=== PATIENT | female | born 1935 | race Caucasian/White ===

== ENCOUNTER → 2017-01-21 | Outpatient (CLI) | payer MEDICARE, BC ==
--- NOTE | 2017-01-22 11:16 | ECHOF ---
Referral Reason:Sub aortic stenosis Q24.4 MEASUREMENTS -------- HEIGHT: 160.0 cm WEIGHT: 60.8 kg BP: IVSd: 1.0 cm (0.6 - 1.1) LVIDd: 4.1 cm (3.9 - 5.3) LVPWd: 0.8 cm (0.6 - 1.1) IVSs: 1.7 cm LVIDs: 2.7 cm LVPWs: 1.4 cm LAESV Index (A-L): 47.07 ml/m Ao Diam: 2.6 cm (2.0 - 3.7) AV Cusp: 1.8 cm (1.5 - 2.6) LA Diam: 3.3 cm (2.7 - 3.8) MV EXCURSION: 12.755 mm (> 18.000) MV EF SLOPE: 85 mm/s (70 - 150) EPSS: 0.3 cm MV E Roe: 1.10 m/s MV DecT: 162 ms MV A Roe: 0.35 m/s MV E/A Ratio: 3.17 AR PHT: 341 ms RAP: 15.00 mmHg RVSP: 59.17 mmHg FINDINGS -------- Sinus rhythm. This was a technically good study. Left ventricular wall thickness is normal. Overall left ventricular systolic function is normal with, an EF between 55 - 60 %. Sigmoid Septum The right ventricle is normal in size and function. LA is severely dilated >40 ml/m2 RA appears enlarged. Aortic valve is trileaflet and is mildly thickened. There is mild aortic regurgitation. The mitral valve leaflets are mildly thickened. Moderate mitral regurgitation is present. Severe tricuspid regurgitation present. There is mild to moderate pulmonary hypertension. The right ventricular systolic pressure, as measured by Doppler, is 59.17mmHg. Trace/mild (physiologic) pulmonic regurgitation. The aortic root size is normal. The pericardium is normal. CONCLUSIONS -------- 1. Sinus rhythm. 2. There is mild aortic regurgitation. 3. The mitral valve leaflets are mildly thickened. 4. Moderate mitral regurgitation is present. 5. Severe tricuspid regurgitation present. 6. There is mild to moderate pulmonary hypertension. 7. The right ventricular systolic pressure, as measured by Doppler, is 59.17mmHg. 8. Trace/mild (physiologic) pulmonic regurgitation. 9. The aortic root size is normal. 10. The pericardium is normal. 11. This was a technically good study. 12. Left ventricular wall thickness is normal. 13. Overall left ventricular systolic function is normal with, an EF between 55 - 60 %. 14. Sigmoid Septum 15. The right ventricle is normal in size and function. 16. LA is severely dilated >40 ml/m2 17. RA appears enlarged. 18. Aortic valve is trileaflet and is mildly thickened. CONTROLLED AREA CHECKER: Stephie Lam RDCS
== END | disposition home or self-care (01) ==
LOC: RADECHMAIN 14:51
PROVIDERS: ATTEND Family Medicine
DX: Q23.1 Congenital insufficiency of aortic valve (principal); Q23.3 Congenital mitral insufficiency; Q22.8 Other congenital malformations of tricuspid valve; I27.2 Other secondary pulmonary hypertension
CPT/HCPCS: 93306

== ENCOUNTER 2017-02-13 06:03 | Day surgery (SDC) | payer MEDICARE, BC ==
[2017-02-08 14:42] VITALS: BMI 23.5
[2017-02-13] MEDS ORDERED: SODIUM CHLORIDE 0.9% 500 ML IV ONE (06:16)
[2017-02-13 06:26] VITALS: RESP 16; TEMP 98
[2017-02-13] MEDS ORDERED: MIDAZOLAM 2 MG/2 ML VIAL ONE (06:48)
[2017-02-13] MEDS ORDERED: fentaNYL (PF) 50 MCG/ML 2 ML AMP ONE (06:48)
[2017-02-13] MEDS ORDERED: BENZOCAINE SPRAY 100 APPLIC/CAN MUCOUS MEM ONE ×2 (06:58→07:02)
[2017-02-13] MEDS ORDERED: fentaNYL (PF) 50 MCG/ML 2 ML AMP IV ONE (07:03)
[2017-02-13] MEDS ORDERED: MIDAZOLAM 2 MG/2 ML VIAL IVP ONE (07:03)
[2017-02-13] MEDS ORDERED: SODIUM CHLORIDE 0.9% 1,000 ML IV SCH (07:30)
[2017-02-13 07:58] VITALS: BP 134/67
[2017-02-13 08:08] VITALS: PULSE 72
--- NOTE | 2017-02-13 08:08 | ECHOT ---
DATE OF SERVICE: INDICATION: Evaluation of mitral and tricuspid valve. PROCEDURE: After explaining the procedure to the patient as well as risks and complications, her blood pressure, heart rate, O2 saturation was monitored. The throat was sprayed with Cetacaine. She received 50 mcg intravenous fentanyl and 2 mg of intravenous Versed. After obtaining conscious moderate sedated state, the probe was introduced in the esophagus without difficulty. Images were obtained. Following that, the probe was removed. There was no immediate complication. FINDINGS: There is mild biatrial enlargement. The left ventricle size and systolic function were normal. There was no evidence of anterior mitral valve abnormal motion. The aortic valve, mitral valve, tricuspid valve and pulmonic valve are normal. Descending thoracic aortic appears to be normal. Contrast bubble study revealed no evidence of shunting across the interatrial speed with Valsalva maneuver. No pericardial effusion was noted. Doppler pulse wave and color Doppler obtained and revealed mild to moderate mitral with moderate tricuspid regurgitation. Estimated right ventricular systolic pressure was 44 mmHg consistent with mild pulmonary hypertension. Trace to mild aortic and trace pulmonic regurgitation were noted. There was no shunting by color Doppler study. CONCLUSION: 1. Biatrial enlargement. 2. Normal left ventricular size and systolic function. 3. Mild to moderate mitral with moderate tricuspid regurgitation and mild pulmonary hypertension. 4. Trace to mild aortic regurgitation and a trace pulmonic regurgitation. 5. There was no evidence of increased velocity in the outflow tract. 6. No pericardial effusion was noted.
[2017-02-13] MEDS ORDERED: NON-FORMULARY DRUG (Calcium Carbonate [Calcium] 600 MG) PO SCH (09:00)
[2017-02-13] MEDS ORDERED: LEVOTHYROXINE 137 MCG TAB PO SCH (09:00)
[2017-02-13] MEDS ORDERED: MULTIVITAMINS, THERA 1 EACH TAB PO SCH (09:00)
[2017-02-13] MEDS ORDERED: ASPIRIN 81 MG CHEW PO SCH (09:00)
[2017-02-13] MEDS ORDERED: NON-FORMULARY DRUG (Omega-3 Fatty Acids/Fish Oil [Fish Oil 1,000 Mg Softgel] 1 EACH) PO SCH (09:00)
[2017-02-13] MEDS ORDERED: CHOLECALCIFEROL 1,000 UNIT TAB PO SCH (09:00)
[2017-02-13] MEDS ORDERED: LISINOPRIL 10 MG TAB PO SCH (09:00)
== END 2017-02-13 08:44 | disposition home or self-care (01) ==
LOC: CATHCVL 06:03
PROVIDERS: ATTEND Internal Medicine Interventional Cardiology
DX: I08.3 Combined rheumatic disorders of mitral, aortic and tricuspid valves (principal); I37.1 Nonrheumatic pulmonary valve insufficiency; I27.2 Other secondary pulmonary hypertension; I10 Essential (primary) hypertension; I42.1 Obstructive hypertrophic cardiomyopathy; Z79.82 Long term (current) use of aspirin; Z79.899 Other long term (current) drug therapy
CPT/HCPCS: 99152; 93312; 93320; 93325; J2250; J3010

== ENCOUNTER 2020-03-10 10:01 | Inpatient (IN) | payer MEDICARE, BC ==
--- NOTE | 2020-03-10 10:21 | ED ---
Arrhythmia/Palpitations HPI <Rodney Arenas - Last Filed: 03/10/20 11:55> - General Source: patient, RN notes reviewed, old records reviewed Mode of arrival: ambulatory Limitations: no limitations <Gladys Mallory - Last Filed: 03/10/20 12:30> - General Chief Complaint: Arrhythmia/Palpitations Stated Complaint: Abnormal EKG Time Seen by Provider: 03/10/20 10:12 - History of Present Illness Initial Comments: Patient is a pleasant 84-year-old female who presents the emergency department today for complaint of abnormal EKG. Patient reportedly was going to an urgent care for poison sumac rash over her legs. She received an IM steroid shot today and was going to have labs checked including patient's INR level. When she went to have her labs checked at the urgent care she is noted to have a high he art rate of 120. She does have a known history of A. fib and is maintained on Coumadin. Patient reports that she's had elevated heart rate off and on for the past year. She states that she sees a microarray operations vice president in [place]. Patient spends 6 months of the year in [place] and 6 months of the year locally. Patient reports that she's had no previous cardiac catheterizations. She is maintained on metoprolol lisinopril and is compliant with medications. She denies any fevers or chills. She denies any nausea or vomiting or abdominal pain. She denies chest pain or shortness of breath currently. Past medical history includes breast cancer with bilateral mastectomy. (Gladys Mallory) - Related Data Home Medications Medication Instructions Recorded Confirmed Lisinopril [Zestril] 10 mg PO DAILY 02/08/17 03/10/20 Levothyroxine Sodium [Synthroid] 150 mcg PO DAILY 03/10/20 03/10/20 Metoprolol Tartrate 25 mg PO BID 03/10/20 03/10/20 Warfarin [Coumadin] 2.5 mg PO SUMOWETHFR 03/10/20 03/10/20 Warfarin [Coumadin] 5 mg PO TUSA 03/10/20 03/10/20 traZODone HCL 50 mg PO HS 03/10/20 03/10/20 Allergies Allergy/AdvReac Type Severity Reaction Status Date / Time No Known Allergies Allergy Verified 06/18/20 11:41 Review of Systems ROS Other: All systems not noted in ROS Statement are negative. <ArenasRodney - Last Filed: 03/10/20 11:55> ROS Other: All systems not noted in ROS Statement are negative. <Gladys Mallory - Last Filed: 03/10/20 12:30> ROS Statement: Those systems with pertinent positive or pertinent negative responses have been documented in the HPI. Past Medical History Past Medical History: Atrial Fibrillation, Cancer Additional Past Medical History / Comment(s): Leaky valve, breast ca-rad History of Any Multi-Drug Resistant Organisms: None Reported Additional Past Surgical History / Comment(s): veins stripping, bilateral breast mastectomy, total right knee Past Anesthesia/Blood Transfusion Reactions: No Reported Reaction Past Psychological History: No Psychological Hx Reported Smoking Status: Never smoker Past Alcohol Use History: Occasional Past Drug Use History: None Reported - Past Family History Mother Family Medical History: No Reported History <Gladys Mallory - Last Filed: 03/10/20 12:30> General Exam Limitations: no limitations General appearance: alert, in no apparent distress Head exam: Present: atraumatic, normocephalic, normal inspection Eye exam: Present: normal appearance, PERRL, EOMI. Absent: scleral icterus, conjunctival injection, periorbital swelling ENT exam: Present: normal exam, mucous membranes moist Neck exam: Present: normal inspection. Absent: tenderness, meningismus, lymphadenopathy Respiratory exam: Present: normal lung sounds bilaterally, other (Scars from bilateral mastectomy.). Absent: respiratory distress, wheezes, rales, rhonchi, stridor Cardiovascular Exam: Present: normal rhythm, tachycardia (Patient is tachycardic at 120 bpm on exam.), normal heart sounds. Absent: regular rate, systolic murmur, diastolic murmur, rubs, gallop, clicks GI/Abdominal exam: Present: soft, normal bowel sounds. Absent: distended, tenderness, guarding, rebound, rigid Psychiatric exam: Present: normal affect, normal mood Skin exam: Present: warm, dry, intact, normal color. Absent: rash <Gladys Mallory - Last Filed: 03/10/20 12:30> - General Exam Comments Initial Comments: Alert and oriented 84-year-old female. Pleasant. No significant distress. (Gladys Mallory) Course <Gladys Mallory - Last Filed: 03/10/20 12:30> Vital Signs 03/10/20 03/10/20 03/10/20 10:02 11:05 11:09 Temperature 97.7 F Pulse Rate 121 H 101 H 76 Respiratory 18 18 16 Rate Blood Pressure 154/116 133/97 121/88 O2 Sat by Pulse 99 98 99 Oximetry 03/10/20 03/10/20 03/10/20 11:33 11:43 11:58 Temperature Pulse Rate 85 82 97 Respiratory 16 16 16 Rate Blood Pressure 152/98 137/80 144/101 O2 Sat by Pulse 100 99 99 Oximetry 03/10/20 12:24 Temperature Pulse Rate 96 Respiratory 16 Rate Blood Pressure 141/94 O2 Sat by Pulse 97 Oximetry - Reevaluation(s) Reevaluation #1: 03/10/20 11:37 Patient is reevaluated after receiving the 5 mg bolus of Cardizem her heart rate is now 86. Denies any symptoms. (Gladys Mallory) Reevaluation #2: 03/10/20 11:48 Reevaluated the Patient at this time and patient's heart rate did go to 125. She was offered a Cardizem drip for 10 minutes and heart rate continues to fluctuate between 125 and 70s. (Gladys Mallory) Medical Decision Making - Lab Data Result diagrams: 03/10/20 10:26 03/10/20 10:26 <Rodney Arenas - Last Filed: 03/10/20 11:55> - Lab Data Result diagrams: 03/10/20 10:26 03/10/20 10:26 - Radiology Data Radiology results: report reviewed <Gladys Mallory - Last Filed: 03/10/20 12:30> - Medical Decision Making Patient reevaluated and reexamined by myself, Dr. Arenas. Patient resting comfortably in bed. Heart rate 121. Cardizem drip restarted. I do agree with PAs findings. This includes diagnostic interpretation and treatment plan. Dr. crawford has been paged for admission covering for Dr. Galeano, who admits for Dr. Hawkins. Case was discussed with Dr. Caraballo, who will admit. (Rodney Arenas) Patient is a pleasant 84-year-old female presents emergency today with concern for high heart rate. She does have history of A. fib maintained on Coumadin. Patient started on a 5 mg bolus of Cardizem heart rate went from [birth year]14/1983. This was then taken off. The patient's heart rate returned to 1 21 bpm. Labs are otherwise unremarkable. Patient's case was discussed with Dr. Arenas and agreed for refractory tachycardia and A. fib with RVR despite the Cardizem initial dose patiently admitted. Maintain at 5 mg an hour Cardizem drip. With consult to cardiology. She has previously seen Dr. Weeks. (Gladys Mallory) - Lab Data Lab Results 03/10/20 03/10/20 03/10/20 Range/Units 10:26 10:26 10:26 WBC 6.0 (3.8-10.6) k/uL RBC 4.27 (3.80-5.40) m/uL Hgb 13.1 (11.4-16.0) gm/dL Hct 41.3 (34.0-46.0) % MCV 96.7 (80.0-100.0) fL MCH 30.6 (25.0-35.0) pg MCHC 31.7 (31.0-37.0) g/dL RDW 13.5 (11.5-15.5) % Plt Count 200 (150-450) k/uL Neutrophils % 79 % Lymphocytes % 10 % Monocytes % 5 % Eosinophils % 3 % Basophils % 1 % Neutrophils # 4.7 (1.3-7.7) k/uL Lymphocytes # 0.6 L (1.0-4.8) k/uL Monocytes # 0.3 (0-1.0) k/uL Eosinophils # 0.2 (0-0.7) k/uL Basophils # 0.0 (0-0.2) k/uL PT 34.8 H (9.0-12.0) sec INR 3.5 H (<1.2) APTT 35.0 H (22.0-30.0) sec Sodium 137 (137-145) mmol/L Potassium 4.8 (3.5-5.1) mmol/L Chloride 104 (98-107) mmol/L Carbon Dioxide 28 (22-30) mmol/L Anion Gap 5 mmol/L BUN 11 (7-17) mg/dL Creatinine 0.52 (0.52-1.04) mg/dL Est GFR (CKD-EPI)AfAm >90 (>60 ml/min/1.73 sqM) Est GFR (CKD-EPI)NonAf 89 (>60 ml/min/1.73 sqM) Glucose 109 H (74-99) mg/dL Calcium 9.4 (8.4-10.2) mg/dL Magnesium 2.0 (1.6-2.3) mg/dL Total Bilirubin 1.7 H (0.2-1.3) mg/dL AST 39 H (14-36) U/L ALT 28 (4-34) U/L Alkaline Phosphatase 60 (38-126) U/L Troponin I (0.000-0.034) ng/mL NT-Pro-B Natriuret Pep pg/mL Total Protein 7.4 (6.3-8.2) g/dL Albumin 4.1 (3.5-5.0) g/dL TSH 0.145 L (0.465-4.680) mIU/L 03/10/20 03/10/20 Range/Units 10:26 10:26 WBC (3.8-10.6) k/uL RBC (3.80-5.40) m/uL Hgb (11.4-16.0) gm/dL Hct (34.0-46.0) % MCV (80.0-100.0) fL MCH (25.0-35.0) pg MCHC (31.0-37.0) g/dL RDW (11.5-15.5) % Plt Count (150-450) k/uL Neutrophils % % Lymphocytes % % Monocytes % % Eosinophils % % Basophils % % Neutrophils # (1.3-7.7) k/uL Lymphocytes # (1.0-4.8) k/uL Monocytes # (0-1.0) k/uL Eosinophils # (0-0.7) k/uL Basophils # (0-0.2) k/uL PT (9.0-12.0) sec INR (<1.2) APTT (22.0-30.0) sec Sodium (137-145) mmol/L Potassium (3.5-5.1) mmol/L Chloride (98-107) mmol/L Carbon Dioxide (22-30) mmol/L Anion Gap mmol/L BUN (7-17) mg/dL Creatinine (0.52-1.04) mg/dL Est GFR (CKD-EPI)AfAm (>60 ml/min/1.73 sqM) Est GFR (CKD-EPI)NonAf (>60 ml/min/1.73 sqM) Glucose (74-99) mg/dL Calcium (8.4-10.2) mg/dL Magnesium (1.6-2.3) mg/dL Total Bilirubin (0.2-1.3) mg/dL AST (14-36) U/L ALT (4-34) U/L Alkaline Phosphatase (38-126) U/L Troponin I <0.012 (0.000-0.034) ng/mL NT-Pro-B Natriuret Pep 539 pg/mL Total Protein (6.3-8.2) g/dL Albumin (3.5-5.0) g/dL TSH (0.465-4.680) mIU/L 03/10/20 10:23 EKG shows atrial flutter with durable AV block with premature complexes. Minimal voltage criteria for LVH. Anterior infarct age-indeterminate. Ventricular rate of 113 bpm. OH interval is nondetected. QRS [facility] is 70 ms. QT QTc is 318/436. (Gladys Mallory) - Radiology Data Chest x-ray shows chronic parenchymal changes without acute pulmonary process. (Gladys Mallory) Disposition <Rodney Arenas - Last Filed: 03/10/20 11:55> Is patient prescribed a controlled substance at d/c from ED?: No Time of Disposition: 12:30 <Gladys Mallory - Last Filed: 03/10/20 12:30> Clinical Impression: Atrial fibrillation with RVR Disposition: ADMITTED IP TO THIS HOSP Condition: Stable Referrals: Capo Hawkins DO [Primary Care Provider] - 1-2 days
[2020-03-10] MEDS ORDERED: SODIUM CHLORIDE 0.9% 1,000 ML IV STA ×2 (10:29)
[2020-03-10] MEDS ORDERED: DILTIAZEM DRIP BOLUS FROM BAG 1 MG SOLN IV ONE (10:44)
[2020-03-10] MEDS ORDERED: DILTIAZEM 125 MG in SODIUM CHLORIDE 0.9% 100 ML IV SCH (10:45)
[2020-03-10 10:51] LABS: Basophils % (A) 1 %; Eosinophils # (A) 0.2 k/uL (0-0.7); Eosinophils % (A) 3 %; HCT 41.3 % (34.0-46.0); HGB 13.1 gm/dL (11.4-16.0); Lymphocytes # (A) 0.6 k/uL (1.0-4.8); Lymphocytes % (A) 10 %; MCH 30.6 pg (25.0-35.0); MCHC 31.7 g/dL (31.0-37.0); MCV 96.7 fL (80.0-100.0); Mean Platelet Volume 7.1; Monocytes # (A) 0.3 k/uL (0-1.0); Monocytes % (A) 5 %; Neutrophils # (A) 4.7 k/uL (1.3-7.7); Neutrophils % (A) 79 %; Platelet Count 200 k/uL (150-450); RBC 4.27 m/uL (3.80-5.40); RDW 13.5 % (11.5-15.5)
[2020-03-10 11:01] LABS: INR 3.5 (<1.2); Prothrombin Time 34.8 sec (9.0-12.0)
[2020-03-10 11:04] LABS: ALT 28 U/L (4-34); AST 39 U/L (14-36); African American GFR (CKD) >90 (>60 ml/min/1.73 sqM); Albumin 4.1 g/dL (3.5-5.0); Alkaline Phosphatase 60 U/L (38-126); Anion Gap 5 mmol/L; Blood Urea Nitrogen 11 mg/dL (7-17); Calcium 9.4 mg/dL (8.4-10.2); Carbon Dioxide 28 mmol/L (22-30); Chloride 104 mmol/L (98-107); Glucose 109 mg/dL (74-99); Non-African American GFR(CKD) 89 (>60 ml/min/1.73 sqM); Sodium 137 mmol/L (137-145); Total Bilirubin 1.7 mg/dL (0.2-1.3); Total Protein 7.4 g/dL (6.3-8.2)
--- NOTE | 2020-03-10 11:05 | XR ---
EXAMINATION TYPE: XR chest 2V DATE OF EXAM: 03/10/2020 COMPARISON: NONE HISTORY: Dysrhythmia. TECHNIQUE: Frontal and lateral views of the chest are obtained. FINDINGS: There is chronic parenchymal changes bilaterally without suspicious new focal air space op acity, pleural effusion, or pneumothorax seen. The cardiac silhouette size is upper limits of normal with atherosclerotic change in the thoracic aorta. The osseous structures are demineralized. IMPRESSION: Chronic parenchymal changes without acute pulmonary process.
[2020-03-10 11:18] LABS: Potassium 4.8 mmol/L (3.5-5.1)
[2020-03-10] MEDS ORDERED: IBUPROFEN 400 MG TAB PO PRN (12:31)
[2020-03-10] MEDS ORDERED: NALOXONE 0.4 MG/ML 1 ML VIAL IV PRN (12:31)
[2020-03-10] MEDS ORDERED: ACETAMINOPHEN TAB 325 MG TAB PO PRN (12:31)
[2020-03-10] MEDS ORDERED: KETOROLAC 30 MG/ML 1 ML VIAL IVP PRN (12:31)
[2020-03-10] MEDS ORDERED: WARFARIN 5 MG TAB PO SCH (12:45)
[2020-03-10] MEDS ORDERED: SODIUM CHLORIDE 0.9% 1,000 ML IV SCH (12:45)
--- NOTE | 2020-03-10 14:41 | P.CRDCN ---
History of Present Illness Consult date: 03/10/20 Requesting physician: Laquita Caraballo Consult reason: atrial flutter Chief complaint: Arrhythmia History of present illness: This is a pleasant 84-year-old female who follows with Dr. Weeks in the office. She has a known history of hypertension, paroxysmal atrial fibrillation for which she is on Coumadin, she states that she would prefer to be on Eliquis but because of cost it was changed back to Coumadin, we will recheck that while she is here. Her last known documented ejection fraction in December 2018 was normal, she has moderate MR, moderate to severe TR. Patient also has hypothyroidism, patient came in contact with some poison sumac, went to her primary care doctor's office, Dr. Hawkins, was seen by the advanced practice nurse there, and was given a dose steroid. Just prior to the patient receiving the steroid it was noted that her heart rate was high, and irregular. Patient was advised to come to the hospital for further evaluation and treatment. EKG on presentation here showed atrial flutter with rapid ventricular response, occasional PVC. Chest x-ray showed chronic parenchymal changes without any acute pulmonary process. White blood cell count 6.0, hemoglobin 13.1, platelet count 200. INR 3.5, sodium 137, potassium 4.8, BUN 11, creatinine 0.5. Magn esium 2.0. Troponin 0.012, BNP 539, TSH 0.145. Past Medical History Past Medical History: Atrial Fibrillation, Cancer Additional Past Medical History / Comment(s): Leaky valve, breast ca-rad History of Any Multi-Drug Resistant Organisms: None Reported Additional Past Surgical History / Comment(s): veins stripping, bilateral breast mastectomy, total right knee Past Anesthesia/Blood Transfusion Reactions: No Reported Reaction Past Psychological History: No Psychological Hx Reported Smoking Status: Never smoker Past Alcohol Use History: Occasional Past Drug Use History: None Reported - Past Family History Mother Family Medical History: No Reported History Medications and Allergies Home Medications Medication Instructions Recorded Confirmed Type Lisinopril [Zestril] 10 mg PO DAILY 02/08/17 03/10/20 History Levothyroxine Sodium [Synthroid] 150 mcg PO DAILY 03/10/20 03/10/20 History Metoprolol Tartrate 25 mg PO BID 03/10/20 03/10/20 History Warfarin [Coumadin] 2.5 mg PO SUMOWETHFR 03/10/20 03/10/20 History Warfarin [Coumadin] 5 mg PO TUSA 03/10/20 03/10/20 History traZODone HCL 50 mg PO HS 03/10/20 03/10/20 History Allergies Allergy/AdvReac Type Severity Reaction Status Date / Time No Known Allergies Allergy Verified 03/10/20 11:41 Physical Exam Vitals: Vital Signs Temp Pulse Resp BP Pulse Ox 03/10/20 12:24 96 16 141/94 97 03/10/20 11:58 97 16 144/101 99 03/10/20 11:43 82 16 137/80 99 03/10/20 11:33 85 16 152/98 100 03/10/20 11:09 76 16 121/88 99 03/10/20 11:05 101 H 18 133/97 98 03/10/20 10:02 97.7 F 121 H 18 154/116 99 Intake and Output 03/09/20 03/10/20 03/10/20 22:59 06:59 14:59 Intake Total 4.417 Balance 4.417 Intake: Intake, IV Titration 4.417 Amount Diltiazem 125 mg In 4.417 Sodium Chloride 0.9% 100 ml @ 5 MG/HR 5 mls/hr IV .Q24H [facility] Rx#:[id number] Other: Weight 55.338 kg PHYSICAL EXAMINATION: GENERAL: 85-year-old female in no acute distress at the time of my examination HEENT: Head is atraumatic, normocephalic. Pupils equal, round. Sclera anicte ayncy. Conjunctiva are clear. Mucous membranes of the mouth are moist. Neck is supple. There is no elevated jugular venous pressure. No carotid bruit is heard. HEART EXAMINATION: Heart S1 and S2 irregularly irregular a systolic ejection murmur is heard CHEST EXAMINATION: Lungs are clear to auscultation and precussion. No chest wall tenderness is noted on palpation or with deep breathing. ABDOMEN: Soft, nontender. Bowel sounds are heard. No organomegaly noted. EXTREMITIES: 2+ peripheral pulses with no evidence of peripheral edema and no calf tenderness noted. NEUROLOGIC patient is awake, alert and oriented 3 . . Results 03/10/20 10:26 03/10/20 10:26 Cardiac Enzymes 03/10/20 03/10/20 Range/Units 10:26 10:26 AST 39 H (14-36) U/L Troponin I <0.012 (0.000-0.034) ng/mL Coagulation 03/10/20 Range/Units 10:26 PT 34.8 H (9.0-12.0) sec APTT 35.0 H (22.0-30.0) sec CBC 03/10/20 Range/Units 10:26 WBC 6.0 (3.8-10.6) k/uL RBC 4.27 (3.80-5.40) m/uL Hgb 13.1 (11.4-16.0) gm/dL Hct 41.3 (34.0-46.0) % Plt Count 200 (150-450) k/uL Comprehensive Metabolic Panel 03/10/20 Range/Units 10:26 Sodium 137 (137-145) mmol/L Potassium 4.8 (3.5-5.1) mmol/L Chloride 104 (98-107) mmol/L Carbon Dioxide 28 (22-30) mmol/L BUN 11 (7-17) mg/dL Creatinine 0.52 (0.52-1.04) mg/dL Glucose 109 H (74-99) mg/dL Calcium 9.4 (8.4-10.2) mg/dL AST 39 H (14-36) U/L ALT 28 (4-34) U/L Alkaline Phosphatase 60 (38-126) U/L Total Protein 7.4 (6.3-8.2) g/dL Albumin 4.1 (3.5-5.0) g/dL Current Medications Generic Name Dose Route Start Last Admin Trade Name Freq PRN Reason Stop Dose Admin Acetaminophen 650 mg 03/10/20 12:31 Tylenol Tab PO Q6HR PRN Mild Pain or Fever > 100.5 Sodium Chloride 1,000 mls @ 130 mls/hr 03/10/20 10:29 03/10/20 11:55 Saline 0.9% IV 03/10/20 18:10 130 mls/hr .Q7H42M STA Administration Diltiazem HCl 125 mg/ Sodium 125 mls @ 5 mls/hr 03/10/20 10:45 03/10/20 11:57 Chloride IV 5 mg/hr .Q24H [facility]ER[facility] 5 mls/hr Infusion 5 MG/HR Sodium Chloride 1,000 mls @ 100 mls/hr 03/10/20 12:45 Saline 0.9% IV .Q10H [facility] Ibuprofen 400 mg 03/10/20 12:31 Motrin PO Q6HR PRN Mild Pain or Fever > 100.5 Ketorolac Tromethamine 15 mg 03/10/20 12:31 Toradol IVP 03/15/20 12:32 Q6HR PRN Moderate Pain Levothyroxine Sodium 150 mcg 03/11/20 06:30 Synthroid PO 0630 [facility] Lisinopril 10 mg 03/11/20 09:00 Zestril PO DAILY [facility] Metoprolol Tartrate 25 mg 03/10/20 21:00 Lopressor PO BID [facility] Naloxone HCl 0.2 mg 03/10/20 12:31 Narcan IV Q2M PRN Opioid Reversal Trazodone HCl 50 mg 03/10/20 21:00 Desyrel PO HS [facility] Warfarin Sodium 2.5 mg 03/10/20 12:45 Coumadin PO SUMOWETHFR [facility] Protocol Warfarin Sodium 5 mg 03/12/20 12:33 Coumadin PO TUSA [facility] Protocol Intake and Output 03/09/20 03/10/20 03/10/20 22:59 06:59 14:59 Intake Total 4.417 Balance 4.417 Intake: Intake, IV Titration 4.417 Amount Diltiazem 125 mg In 4.417 Sodium Chloride 0.9% 100 ml @ 5 MG/HR 5 mls/hr IV .Q24H [facility] Rx#:[id number] Other: Weight 55.338 kg Patient Weight 03/11/20 06:59 Weight 55.338 kg 03/10/20 10:26 03/10/20 10:26 EKG Interpretations (text) EKG shows atrial flutter with a rapid ventricular response Assessment and Plan Plan: Assessment and plan #1 typical atrial flutter with rapid ventricular response, occasional PVC #2 history of paroxysmal atrial fibrillation on Coumadin for anticoagulation #3 hypertension #4 valvular heart disease with moderate mitral regurgitation and moderate to severe tricuspid regurgitation #5 hypothyroidism, TSH 0.14, 150 g of Synthroid daily Plan Patient's last echocardiogram with Doppler study was performed in December 2018, revealed a normal ejection fraction with moderate MR and moderate to severe TR, we will repeat an echo this admission. We will also check into coverage for Eliquis, previously when the patient was on Eliquis which was costing her approximally $400 , we'll see if this galvan is better now then we will change her over. We will keep the patient nothing by mouth midnight, schedule the patient for a AMINA and elective cardioversion tomorrow. Further recommendations to follow. DNP note has been reviewed, I agree with a documented findings and plan of care. Patient was seen and examined.
[2020-03-10] MEDS: FLECAINIDE 50 MG TAB PO SCH ×2 (18:41→21:55)
[2020-03-10] MEDS ORDERED: traZODone HCL 50 MG TAB PO SCH (21:00)
[2020-03-10] MEDS: METOPROLOL TARTRATE 25 MG TAB PO SCH (21:55)
--- NOTE | 2020-03-11 00:24 | P.HPIM ---
History of Present Illness H&P Date: 03/10/20 Chief Complaint: Abnormal EKG Patient is a 84-year-old female with a known history of atrial fibrillation currently anticoagulation with Coumadin for the past 2 years, hypertension, hypothyroidism, history of bilateral breast cancer with bilateral mastectomy/Radiation presents to ER from urgent care facility due to abnormal EKG. Patient went to urgent care facility due to poison sumac rash over her legs. Patient did receive IV steroid injection and labs were checked. Patient was noticed to have increased heart rate to 120s. Patient was sent to hospital due to A. fib with RVR. Patient does take Coumadin for anticoagulation. Otherwise patient denied any complaints of fever or chills. No headache or dizziness or lightheadedness. No chest pain or shortness breath. Skin rash is improved with steroid injection. Chest x-ray showed chronic parenchymal changes without acute pulmonary process EKG showed A. fib with RVR. Laboratory data showed INR 3.5 Bilirubin 1.7, AST 39 and ALT 28 TSH level is 0.145 and free T4 level is 2.27 normal being less than 2.19 Review of Systems Constitutional: Patient denies any fever or chills . No generalized weakness or weight loss. Abdomen: Patient denied nausea vomiting and diarrhea and abdominal pain. Cardiovascular: Patient denies any chest pain or short of breath no palpitations. Respiratory: patient denied any cough is from production. No shortness of breath Neurologic: Patient denied any numbness or tingling headache. Musculoskeletal: Patient denies any complaints of joint swelling or deformity. Skin: rash allergic Psychiatric: Negative Endocrine: No heat or cold intolerance. No recent weight gain. Genitourinary: No dysuria or hematuria. All other 14 point ROS negative except the above Past Medical History Past Medical History: Atrial Fibrillation, Cancer, Chest Pain / Angina, Hyper tension, Osteoarthritis (OA), Skin Disorder, Thyroid Disorder Additional Past Medical History / Comment(s): Afib with rvr in past, mitral valve leak, bilateral breast cancer with bilateral mastectomies/radiation, arthritis in R great toe and R thumb, hypothyroid, pt has poison sumac rash bilateral legs. History of Any Multi-Drug Resistant Organisms: None Reported Past Surgical History: Breast Surgery, Joint Replacement Additional Past Surgical History / Comment(s): AMINA, bilateral mastectomies, b ilateral leg vein stripping, total R knee arthroplasty, one salpingoophorectomy pt thinks d/t cysts-cannot recall laterallity, bilateral cataract removal/lens implants, colonoscopy. Past Anesthesia/Blood Transfusion Reactions: No Reported Reaction Smoking Status: Never smoker - Past Family History Mother Family Medical History: Neurologic Disorder Additional Family Medical History / Comment(s): Mother of ALS at the age of 51 yrs. Father Additional Family Medical History / Comment(s): Father had an enlarged heart. He lived to be 86 or 87yrs old. Medications and Allergies Home Medications Medication Instructions Recorded Confirmed Type Lisinopril [Zestril] 10 mg PO DAILY 02/08/17 03/10/20 History Levothyroxine Sodium [Synthroid] 150 mcg PO DAILY 03/10/20 03/10/20 History Metoprolol Tartrate 25 mg PO BID 03/10/20 03/10/20 History Warfarin [Coumadin] 2.5 mg PO SUMOWETHFR 03/10/20 03/10/20 History Warfarin [Coumadin] 5 mg PO TUSA 03/10/20 03/10/20 History traZODone HCL 50 mg PO HS 03/10/20 03/10/20 History Allergies Allergy/AdvReac Type Severity Reaction Status Date / Time No Known Allergies Allergy Verified 03/10/20 11:41 Physical Exam Vitals: Vital Signs Temp Pulse Resp BP Pulse Ox 03/10/20 12:24 96 16 141/94 97 03/10/20 11:58 97 16 144/101 99 03/10/20 11:43 82 16 137/80 99 03/10/20 11:33 85 16 152/98 100 03/10/20 11:09 76 16 121/88 99 03/10/20 11:05 101 H 18 133/97 98 03/10/20 10:02 97.7 F 121 H 18 154/116 99 Intake and Output 03/10/20 03/10/20 03/10/20 06:59 14:59 22:59 Intake Total 4.417 Balance 4.417 Intake: Intake, IV Titration 4.417 Amount Diltiazem 125 mg In 4.417 Sodium Chloride 0.9% 100 ml @ 5 MG/HR 5 mls/hr IV .Q24H [facility] Rx#:[id number] Other: Weight 55.338 kg PHYSICAL EXAMINATION: Patient is lying in the bed comfortably, no acute distress, awake alert and oriented.. HEENT: Normocephalic. Neck is supple. Pupils reactive. Nostrils clear. Oral cavity is moist. Ears reveal no drainage. Neck reveals no JVD, carotid bruits, or thyromegaly. CHEST EXAMINATION: Trachea is central. Symmetrical expansion. Lung juárez clear to auscultation and percussion. CARDIAC: Normal S1, S2 with no gallops. No murmurs . irregular ABDOMEN: Soft. Bowel sounds normal. No organomegaly. No abdominal bruits. Extremities: reveal no edema. No clubbing or cyanosis Neurologically awake, alert, oriented x3 with well-coordinated movements. No focal deficits noted Skin: No rash or skin lesions. Psychiatric: Coperative. Nonsuicidal Musculoskeletal: No joint swelling or deformity. Normal range of motion. Results CBC & Chem 7: 03/10/20 10:26 03/10/20 10:26 Labs: Abnormal Lab Results - Last 24 Hours (Table) 03/10/20 03/10/20 03/10/20 Range/Units 10:26 10:26 10:26 Lymphocytes # 0.6 L (1.0-4.8) k/uL PT 34.8 H (9.0-12.0) sec INR 3.5 H (<1.2) APTT 35.0 H (22.0-30.0) sec Glucose 109 H (74-99) mg/dL Total Bilirubin 1.7 H (0.2-1.3) mg/dL AST 39 H (14-36) U/L TSH 0.145 L (0.465-4.680) mIU/L Thrombosis Risk Factor Assmnt - DVT/VTE Prophylaxis DVT/VTE Prophylaxis: Pharmacologic Prophylaxis ordered - Choose All That Apply Any of the Below Risk Factors Present?: Yes Other Risk Factors: Yes Each Risk Factor Represents 2 Points: Malignancy Each Risk Factor Represents 3 Points: Age 75 years or older Other congenital or acquired thrombophilia - If yes, enter type in comment: No Thrombosis Risk Factor Assessment Total Risk Factor Score: 5 Thrombosis Risk Factor Assessment Level: High Risk Assessment and Plan Assessment: Atrial fibrillation with rapid ventricular rate. Paroxysmal atrial fibrillation on anticoagulation with Coumadin at home poison sumac rash bilateral legs. Status post IM steroid injection. Hypertension Osteoarthritis History of mitral regurgitation moderate Hypothyroidism currently on Synthroid. But TSH is low and free T4 is slightly elevated. History of bilateral mastectomies and radiation DVT prophylaxis patient is already on Coumadin Plan: Patient will be continued on telemetry monitoring. Cardizem drip was started and titrate down with with heart rate below 90. Patient was started back on metoprolol. Repeat 2D echocardiogram was ordered. We will consider reducing dose of Synthroid to 125 mg daily. Cardiology is on board. Further recommendations based on the clinical course. Time with Patient: Greater than 30
[2020-03-11 04:37] VITALS: RESP 16
[2020-03-11] MEDS: METOPROLOL TARTRATE 25 MG TAB PO SCH (06:17)
[2020-03-11] MEDS: FLECAINIDE 50 MG TAB PO SCH (06:17)
[2020-03-11] MEDS ORDERED: LEVOTHYROXINE 75 MCG TAB PO SCH (06:30)
[2020-03-11] MEDS ORDERED: PROPOFOL 10 MG/ML 20 ML VIAL IV ONE (07:22)
[2020-03-11] MEDS ORDERED: LIDOCAINE 1% INJ 10MG/ML (20 ML MDV) ONE (07:22)
[2020-03-11] MEDS: BENZOCAINE SPRAY 1 CAN MUCOUS MEM ONE ×2 (07:30→07:35)
[2020-03-11] MEDS ORDERED: SODIUM CHLORIDE 0.9% 1,000 ML IV SCH (08:00)
[2020-03-11] MEDS ORDERED: LISINOPRIL 10 MG TAB PO SCH (09:00)
[2020-03-11 09:04] LABS: INR 3.2 (<1.2); Prothrombin Time 31.6 sec (9.0-12.0)
--- NOTE | 2020-03-11 09:15 | ECHOT ---
TRANSESOPHAGEAL ECHOCARDIOGRAM INDICATION: Evaluation of left atrial appendage. PROCEDURE: After explaining the procedure to the patient, its risks and the complications, blood pressure, heart rate, O2 saturation was monitored. She received sedation per Anesthesia Department. The probe was introduced into the esophagus without difficulty. Images were obtained. From that, the probe was removed. There was no immediate complication. FINDINGS: Left atrial size is dilated. Left atrial appendage is normal. Spontaneous contrast was noted. Right atrial size is dilated. Left ventricular size and systolic function normal. The aortic valve and tricuspid valve with mild fibrocalcific change with aortic cusp with preserved opening, mitral valve revealed thickening of the leaflets. The tricuspid valve is normal. Descending thoracic aorta revealed mild atherosclerotic changes. No pericardial effusion was noted. Contrast bubble study revealed no evidence of shunting across the interatrial septum. Doppler pulse wave and color Doppler obtained and revealed a mild mitral and aortic regurgitation with moderate tricuspid regurgitation. There was no shunting by color Doppler study. CONCLUSION: 1. Biatrial enlargement with normal appearance left atrial appendage with spontaneous contrast. 2. Normal left ventricular size and systolic function. 3. Aortic sclerosis with no evidence of stenosis with mild aortic regurgitation. 4. Thickened mitral valve leaflets with mild mitral regurgitation. 5. Moderate tricuspid regurgitation. 6. Mild atherosclerotic changes of the descending thoracic aorta. 7. No pericardial effusion. MMODL / IJN: [id number] /
--- NOTE | 2020-03-11 09:54 | PN ---
PROGRESS NOTE Mrs. Suárez is an 84-year-old female with known history of paroxysmal fibrillation, was noted yesterday with atrial flutter with rapid ventricular response, was admitted to the hospital. She is feeling better today. Her heart rate is under better control. She denies any chest pain. No dizziness or palpitation. She denies any nausea. Hemodynamically, she is stable. She continues to be on flecainide 50 mg twice a day, lisinopril 10 mg daily, metoprolol tartrate 25 mg twice a day, Coumadin in addition to IV Cardizem. PHYSICAL EXAMINATION: Blood pressure running in the 150s with a heart rate in he 70s. LUNGS: Clear. HEART: Irregular, regular, S1, S2. No S3. No rub appreciated. ABDOMEN: Soft, nontender. EXTREMITIES: No edema. IMPRESSION: 1. Episode of atrial flutter with rapid ventricular response. 2. History of hypothyroidism. 3. Moderate mitral and moderate tricuspid regurgitation in the past. 4. Hypertension. RECOMMENDATION: Patient will proceed with transesophageal echocardiogram and cardioversion if stable. Will see if she qualifies for Eliquis. If she is stable, she may be able to be discharged home today and follow up as an outpatient if sinus mechanism is restored. MMODL / IJN: [id number] /
[2020-03-11 10:32] VITALS: PULSE 63
[2020-03-11 11:29] VITALS: BP 131/83; TEMP 98.3
--- NOTE | 2020-03-11 11:42 | CE ---
CARDIAC ELECTROPHYSIOLOGY REPORT INDICATION: Atrial fibrillation and atrial flutter. PROCEDURE: After explaining the procedure the patient, its risks and complication. After obtaining transesophageal echocardiogram and sedated state by the Anesthesia Department, a synchronized biphasic 200 joule cardioversion was performed with jain of normal sinus rhythm. There was no immediate complication. SCOTT / DIETER: [id number] /
[2020-03-12] MEDS ORDERED: WARFARIN 5 MG TAB PO SCH (12:33)
== END 2020-03-11 15:10 | disposition home or self-care (01) | DRG 310 ==
LOC: EC 10:01 → 3SCARD 11:54
PROVIDERS: ADMIT Internal Medicine; ATTEND Internal Medicine
PROC: B24BZZ4 Ultrasonography of Heart with Aorta, Transesophageal (ICD-10-PCS; principal; 2020-03-11 07:30)
DX: I48.3 Typical atrial flutter (principal); I48.0 Paroxysmal atrial fibrillation; I49.3 Ventricular premature depolarization; E03.9 Hypothyroidism, unspecified; I08.1 Rheumatic disorders of both mitral and tricuspid valves; I10 Essential (primary) hypertension; M19.90 Unspecified osteoarthritis, unspecified site; L23.7 Allergic contact dermatitis due to plants, except food; Z11.59 Encounter for screening for other viral diseases; Z79.01 Long term (current) use of anticoagulants; Z79.890 Hormone replacement therapy; Z79.899 Other long term (current) drug therapy; Z85.3 Personal history of malignant neoplasm of breast; Z90.13 Acquired absence of bilateral breasts and nipples; Z96.651 Presence of right artificial knee joint; Z92.3 Personal history of irradiation; Z82.0 Family history of epilepsy and other diseases of the nervous system; Z82.49 Family history of ischemic heart disease and other diseases of the circulatory system
CPT/HCPCS: 36415; 71046; 80053; 83735; 83880; 84439; 84443; 84484; 85025; 85610; 85730; 92960; 93005; 93312; 93320; 93325; 96365; 96366; 96376; 99285

== ENCOUNTER → 2021-07-28 | Outpatient (CLI) | payer MEDICARE, BC ==
--- NOTE | 2021-07-28 15:12 | BD ---
EXAMINATION TYPE: Axial Bone Density DATE OF EXAM: 07/28/2021 COMPARISON: NONE CLINICAL HISTORY: 86 YR OLD FEMALE....ICD-10 CODE: M85.89 DISORDER OF BD Height: 61.8 Weight: 119 FRAX RISK QUESTIONS: NOTHING ADDITIONAL TO ADD HERE RISK FACTORS HISTORY OF: Family History of Osteoporosis: UNKNOWN Postmenopausal woman: YES, AT 50 YRS OLD Hyperparathyroidism: NO Adrenal Insufficiency: NO MEDICATIONS: Thyroid Medications: YES, SYNTHROID FOR 15 YRS Osteoporosis Medications: YES, FOSAMAX FOR ABOUT 6 YRS Additional Medications: BP MEDS, HX OF RADIATION, VIT D AND CALCIUM Additional History: HX OF BILAT BREAST CANCER, HYPERTENSION, EXAM MEASUREMENTS: Bone mineral densitometry was performed using the [employer] System. Bone mineral density as measured about the Lumbar spine is: ----- L1-L4(G/cm2): 1.023 T Score Values are as follows: ----- L1: -2.4 ----- L2: -1.8 ----- L3: -0.3 ----- L4: -1.0 ----- L1-L4: -1.3 Bone mineral density FIRST DEXA AT [facility] Bone mineral density about the R hip (g/cm2): 0.732 Bone mineral density about the L hip (g/cm2): 0.771 T Score values are as follows: -----R Neck: -2.6 -----L Neck: -2.2 -----R Total: -2.2 -----L Total: -1.9 Bone mineral density FIRST DEXA STUDY [facility].... FRAX%s: THERE IS A 18.2% CHANCE FOR A MAJOR OSTEOPOROTIC FX AND A 7.1% FOR HIP......PROBABILITY FO R FX IN 10 YRS TIME IMPRESSION: Osteoporosis (T Score less than -2.5). There is increased fracture risk and therapy is usually indicated based on age. Re-Screen 1-2 years. NOTE: T-SCORE=SD OF THE YOUNG ADULT MEAN.
== END | disposition home or self-care (01) ==
LOC: RADBDWWP 09:22
PROVIDERS: ATTEND Family Medicine
DX: M81.0 Age-related osteoporosis without current pathological fracture (principal)
CPT/HCPCS: 77080

== ENCOUNTER → 2022-01-01 | Outpatient (CLI) | payer MEDICARE, BC ==
[2022-01-01 11:43] LABS: Prothrombin Time 98.3 sec (9.0-12.0)
[2022-01-01 11:55] LABS: INR 9.5 (<1.2)
== END | disposition home or self-care (01) ==
LOC: LABWHC1 09:13
PROVIDERS: ATTEND Nurse Practitioner Adult Health
DX: I48.0 Paroxysmal atrial fibrillation (principal)
CPT/HCPCS: 36415; 85610

== ENCOUNTER → 2022-01-22 | Outpatient (CLI) | payer MEDICARE, BC ==
[2022-01-22 19:21] LABS: INR 5.18 (0.90-1.11); Prothrombin Time 54.1 sec (9.9-11.9)
== END | disposition home or self-care (01) ==
LOC: LABWHC1 11:34
PROVIDERS: ATTEND Nurse Practitioner Family
DX: I48.19 Other persistent atrial fibrillation (principal)
CPT/HCPCS: 36415; 85610

== ENCOUNTER → 2024-04-08 | Outpatient (CLI) | payer MEDICARE, BC ==
--- NOTE | 2024-04-09 12:46 | CA ---
Transthoracic Echo Report Name: Nadya Suárez Age: 88 Gender: F : 1935 Exam Date: 04/08/2024 14:26 Exam Location: [facility] Ht (in): 63 Wt (lb): 126 Ordering Physician: Pretty Mackenzie MD Attending/Referring Phys: Felicitas George Perforating Machine Operator Vira Gtz RDCS Procedure CPT: Indications: I48.19 OTHER PERSISTENT ATRIAL FIBRILLATION Cardiac Hx: A-Fib Technical Quality: Fair Contrast 1: Total Dose (mL): Contrast 2: Total Dose (mL): MEASUREMENTS (Male / Female) Normal Values 2D ECHO LV Diastolic Diameter PLAX 3.7 cm 4.2 - 5.9 / 3.9 - 5.3 cm LV Systolic Diameter PLAX 2.3 cm IVS Diastolic Thickness 1.2 cm 0.6 - 1.0 / 0.6 - 0.9 cm LVPW Diastolic Thickness 1.2 cm 0.6 - 1.0 / 0.6 - 0.9 cm LV Relative Wall Thickness 0.6 RV Internal Dim ED PLAX 3.6 cm LVOT Diameter 1.7 cm LA Volume 118.2 cm??? 18 - 58 / 22 - 52 cm??? LA Volume Index 74.0 cm???/m??? 16 - 28 cm???/m??? M-MODE Aortic Root Diameter MM 2.5 cm LA Systolic Diameter MM 4.7 cm LA Ao Ratio MM 1.9 AV Cusp Separation MM 1.4 cm DOPPLER AV Peak Velocity 154.2 cm/s AV Peak Gradient 9.5 mmHg AV Mean Velocity 106.5 cm/s AV Mean Gradient 5.0 mmHg AV Velocity Time Integral 34.1 cm AI Peak Velocity 389.5 cm/s AI Peak Gradient 60.7 mmHg AI Pressure Half Time 478.1 ms LVOT Peak Velocity 100.7 cm/s LVOT Peak Gradient 4.1 mmHg LVOT Velocity Time Integral 24.7 cm LVOT Stroke Volume 55.9 cm??? LVOT Stroke Volume Index 35.2 ml/m??? LVOT Cardiac Index 2237.9 cm???/min???m??? AV Area Cont Eq vti 1.6 cm??? AV Area Cont Eq pk 1.5 cm??? MV Area PHT 4.2 cm??? Mitral E Point Velocity 123.6 cm/s Mitral A Point Velocity 0.9 cm/s Mitral E to A Ratio 136.7 MV Deceleration Time 180.2 ms TR Peak Velocity 476.2 cm/s TR Peak Gradient 90.7 mmHg Right Atrial Pressure 20.0 mmHg Pulmonary Artery Systolic Pressu 110.7 mmHg Right Ventricular Systolic Press 110.7 mmHg FINDINGS Left Ventricle Mildly increased left ventricular wall thickness. Left ventricular cavity size normal. Normal left ventricular systolic function with no obvious regional wall motion abnormalities. Left ventricular ejection fraction is estimated at 55-60 %. Left atrial pressure and left ventricular end-diastolic pressure both elevated. Right Ventricle Mild right ventricular dilatation. Severe pulmonary hypertension. Right ventricular systolic pressure estimated at 110 mm hg. Right Atrium Severe right atrial dilatation. Left Atrium Severely increased left atrial volume. Mildly increased left atrial area. Mitral Valve Structurally normal mitral valve. Mitral valve thickened. Moderate mitral annular calcification. Mild to moderate mitral regurgitation. Aortic Valve Trileaflet aortic valve. No aortic stenosis. Mild aortic regurgitation. Tricuspid Valve Structurally normal tricuspid valve. Severe tricuspid regurgitation. Pulmonic Valve Structurally normal pulmonic valve. Trace to mild pulmonic regurgitation. Pericardium No pericardial effusion. Aorta Normal size aortic root and proximal ascending aorta. CONCLUSIONS Left ventricular ejection fraction 55-60% Mildly increased left ventricular wall thickness Mild right ventricular dilation Severe pulmonary hypertension with RVSP 110 Severe left atrial dilation Moderate mitral calcification [id number] mitral regurgitation Severe tricuspid regurgitation Previewed by: Dr. Norm Alvarez DO (Electronically Signed) Final Date: 09 April 2024 12:45
== END | disposition home or self-care (01) ==
LOC: RADECHMAIN 13:47
PROVIDERS: ATTEND Internal Medicine Clinical Cardiac Electrophysiology
DX: I48.19 Other persistent atrial fibrillation (principal); I08.1 Rheumatic disorders of both mitral and tricuspid valves; I27.20 Pulmonary hypertension, unspecified
CPT/HCPCS: 93306

== ENCOUNTER 2025-04-12 09:58 | Inpatient (IN) | payer MEDICARE, BC ==
--- NOTE | 2025-04-12 10:26 | ED ---
Fall HPI - General Chief Complaint: Fall Stated Complaint: Fall-R knee injury Time Seen by Provider: 04/12/25 10:12 Source: patient, family, EMS Mode of arrival: EMS Limitations: no limitations - History of Present Illness Initial Comments: This is an 89-year-old female with history including A-fib and right TKA presenting via EMS for right knee injury following a fall. Patient states she was grabbing soap from her shower when she slipped on a towel as she was leaving it, falling forward and then backwards with significant right lower extremity pain following the incident. Patient endorses use of Eliquis but denies striking her head, loss of consciousness, headache, neck pain, dizziness, vision changes, nausea/vomiting. Denies any other significant injury, stating she is unable to move her right leg/knee due to the pain. EMS provided total of 8 mg morphine prior to ER arrival. MD Complaint: fall Onset/Timin -: hour(s) Fall From: standing Fall Witnessed: no Place Fall Occurred: home Loss of Consciousness: none Prolonged Down Time?: no Symptoms Prior to Fall: none Location - Extremities: Right: Knee Severity scale (1-10): 10 Context: tripped/slipped Associated Symptoms: denies - Related Data Home Medications Medication Instructions Recorded Confirmed lisinopriL [Zestril] 10 mg PO HS 02/08/17 04/12/25 Metoprolol Tartrate 25 mg PO BID 03/10/20 04/12/25 Apixaban [Eliquis] 2.5 mg PO BID@0700,209904/12/25 04/12/25 Flecainide [Tambocor] 50 mg PO BID@0700,209904/12/25 04/12/25 Levothyroxine Sodium [Synthroid] 112 mcg PO DAILY@0700 04/12/25 04/12/25 QUEtiapine [SEROquel] 12.5 mg PO HS 04/12/25 04/12/25 Allergies Allergy/AdvReac Type Severity Reaction Status Date / Time No Known Allergies Allergy Verified 04/12/25 13:19 Review of Systems ROS Statement: Those systems with pertinent positive or pertinent negative responses have been documented in the HPI. ROS Other: All systems not noted in ROS Statement are negative. Past Medical History Past Medical History: Atrial Fibrillation, Cancer, Chest Pain / Angina, Hypertension, Osteoarthritis (OA), Skin Disorder, Thyroid Disorder Additional Past Medical History / Comment(s): Afib with rvr in past, mitral valve leak, bilateral breast cancer with bilateral mastectomies/radiation, arthritis in R great toe and R thumb, hypothyroid, pt has poison sumac rash bilateral legs. History of Any Multi-Drug Resistant Organisms: None Reported Past Surgical History: Breast Surgery, Joint Replacement Additional Past Surgical History / Comment(s): AMINA, bilateral mastectomies, bilateral leg vein stripping, total R knee arthroplasty, one salpingoophorectomy pt thinks d/t cysts-cannot recall laterallity, bilateral cataract removal/lens implants, colonoscopy. Past Anesthesia/Blood Transfusion Reactions: No Reported Reaction Past Psychological History: No Psychological Hx Reported Past Alcohol Use History: Daily Past Drug Use History: None Reported - Past Family History Mother Family Medical History: Neurologic Disorder Additional Family Medical History / Comment(s): Mother of ALS at the age of 51 yrs. Father Additional Family Medical History / Comment(s): Father had an enlarged heart. He lived to be 86 or 87yrs old. General Exam Limitations: no limitations General appearance: alert, in no apparent distress Head exam: Present: atraumatic, normocephalic, normal inspection Eye exam: Present: normal appearance, PERRL, EOMI. Absent: scleral icterus, conjunctival injection, periorbital swelling ENT exam: Present: normal exam, mucous membranes moist Neck exam: Present: normal inspection. Absent: tenderness, meningismus, lymphadenopathy Respiratory exam: Present: normal lung sounds bilaterally. Absent: respiratory distress, wheezes, rales, rhonchi, stridor Cardiovascular Exam: Present: regular rate, normal rhythm, normal heart sounds. Absent: systolic murmur, diastolic murmur, rubs, gallop, clicks GI/Abdominal exam: Present: soft, normal bowel sounds. Absent: distended, tenderness, guarding, rebound, rigid Extremities exam: Present: tenderness (Significant right knee and femur TTP. Negative hip tenderness or instability), normal capillary refill, other (Distal RLE neurovascular and motor function intact. Posterior tibialis pulse +2. Patient unable to move leg or raise leg off bed). Absent: full ROM, pedal edema, joint swelling, calf tenderness Back exam: Present: normal inspection, other Neurological exam: Present: alert, oriented X3, CN II-XII intact Psychiatric exam: Present: normal affect, normal mood Skin exam: Present: warm, dry, intact, normal color. Absent: rash Course Vital Signs 04/12/25 04/12/25 04/12/25 09:59 11:32 12:55 Temperature 97.5 F L 97.7 F 97.8 F Pulse Rate 100 95 103 H Respiratory 20 16 16 Rate Blood Pressure 145/93 125/84 100/59 O2 Sat by Pulse 98 98 96 Oximetry Medical Decision Making - Medical Decision Making Was pt. sent in by a medical professional or institution (, PA, SURGICAL SUPERVISOR, urgent care, hospital, or fdc...) When possible be specific @ -No Did you speak to anyone other than the patient for history (EMS, parent, family, police, friend...)? What history was obtained from this source @ -Patient's provided significant portion of HPI Did you review nursing and triage notes (agree or disagree)? Why? @ -I reviewed and agree with nursing and triage notes Were old charts reviewed (outside hosp., previous admission, EMS record, old EKG, old radiological studies, urgent care reports/EKG's, fdc records)? Report findings @ -No old charts were reviewed Differential Diagnosis (chest pain, altered mental status, abdominal pain women, abdominal pain men, vaginal bleeding, weakness, fever, dyspnea, syncope, headache, dizziness, GI bleed, back pain, seizure, CVA, palpatations, mental health, musculoskeletal)? @ -Differential Musculoskeletal Muscular strain, contusion, ligament sprain, fracture, arthritis, septic arthritis, bursitis, cellulitis, muscle spasm, nerve compression, DVT, arterial occlusion, herpes zoster, electrolyte abnormality, tumor.... This is not meant to be in all inclusive list EKG interpreted by me (3pts min.). @ -Not done X-rays interpreted by me (1pt min.). @ -Right knee x-ray shows comminuted fracture of distal femoral metadiaphysis with anterior apex angulation with extension medially into prosthetic. CT interpreted by me (1pt min.). @ -None done U/S interpreted by me (1pt. min.). @ -None done What testing was considered but not performed or refused? (CT, X-rays, U/S, labs)? Why? @ -None What meds were considered but not given or refused? Why? @ -None Did you discuss the management of the patient with other professionals (professionals i.e. , PA, SURGICAL SUPERVISOR, lab, RT, psych nurse, social media executive, stage manager, t eacher, first officer, mattress spring encaser)? Give summary @ -Contacted Dr. Levine from who advised to admit patient under Dr. Barker, consult to medicine and n.p.o. after midnight. Was smoking cessation discussed for >3mins.? @ -No Was critical care preformed (if so, how long)? @ -No Were there social determinants of health that impacted care today? How? (Homelessness, low income, unemployed, alcoholism, drug addiction, transportation, low edu. Level, literacy, decrease access to med. care, alf, rehab)? @ -No Was there de-escalation of care discussed even if they declined (Discuss DNR or withdrawal of care, Hospice)? DNR status @ -No What co-morbidities impacted this encounter? (DM, HTN, Smoking, COPD, CAD, Cancer, CVA, ARF, Chemo, Hep., AIDS, mental health diagnosis, sleep apnea, morbid obesity)? @ -None Was patient admitted / discharged? Hospital course, mention meds given and route, prescriptions, significant lab abnormalities, going to OR and other pertinent info. @ -Patient initially provided IV Dilaudid and p.o. Tylenol for pain. Right knee x-ray shows comminuted fracture of distal femoral metadiaphysis with anterior apex angulation with extension medially into prosthetic. Additional IV Dilaudid provided and patient placed in knee immobilizer by nurse. Contacted Dr. Levine from who advised to admit patient under Dr. Barker, consult to medicine and n.p.o. after midnight. Discussed patient with Dr. Armijo. Undiagnosed new problem with uncertain prognosis? @ -No Drug Therapy requiring intensive monitoring for toxicity (Heparin, Nitro, Insulin, Cardizem)? @ -No Were any procedures done? @ -No Diagnosis/symptom? @ -Closed, comminuted fracture of right distal femur Acute, or Chronic, or Acute on Chronic? @ -Acute Uncomplicated (without systemic symptoms) or Complicated (systemic symptoms)? @ -Uncomplicated Side effects of treatment? @ -No Exacerbation, Progression, or Severe Exacerbation? @ -No Poses a threat to life or bodily function? How? (Chest pain, [place], [place], pneumonia, PE, COPD, DKA, ARF, appy, cholecystitis, CVA, Diverticulitis, Homicidal, Suicidal, threat to staff... and all critical care pts) @ -No - Lab Data Result diagrams: 04/12/25 15:17 04/12/25 15:17 Disposition Clinical Impression: Fall, Fracture of femur, distal, right, closed Disposition: [facility] Condition: Fair Time of Disposition: 12:00 Decision Date: 04/12/25 Decision Time: 12:00
[2025-04-12] MEDS: HYDROmorphone 0.5 MG/0.5 ML SYRINGE IVP STA (10:29)
[2025-04-12] MEDS: ACETAMINOPHEN TAB 500 MG TAB PO STA (10:29)
--- NOTE | 2025-04-12 11:28 | XR ---
EXAMINATION TYPE: XR knee limited RT DATE OF EXAM: 04/12/2025 11:06 AM COMPARISON: None CLINICAL INDICATION: Female, 89 years old with history of Fall, significant right knee and femur TTP, R TKA; PHH, pain TECHNIQUE: 2 views FINDINGS: There is an underlying residual knee arthroplasty. Additionally, there is a comminuted frac ture distal femoral metadiaphysis with salome anterior apex angulation. Fracture corner abuts the over lying quadriceps tendon. On the AP view, there may be periprosthetic extension to the medial aspect o f the prosthesis. IMPRESSION: 1. Mildly comminuted fracture distal femoral metadiaphysis with salome anterior apex angulation. 2. There appears to be prosthetic extension medially on the AP view. [facility], , 04/12/2025 11:26 AM
[2025-04-12] MEDS ORDERED: HYDROmorphone 0.5 MG/0.5 ML SYRINGE IVP STA (11:36)
[2025-04-12] MEDS: HYDROmorphone 1 MG/ML 1 ML SYRINGE IVP STA (11:46)
--- NOTE | 2025-04-12 12:35 | XR ---
EXAMINATION TYPE: XR knee limited RT DATE OF EXAM: 04/12/2025 12:19 PM COMPARISON: Earlier today CLINICAL INDICATION: Female, 89 years old with history of post knee immobilizer; PHH, pain TECHNIQUE: 2 views FINDINGS: Mildly comminuted fracture distal radial metadiaphysis redemonstrated. The degree of anterior apex an gulation shows some improvement. Slight lateral angulation is now present. Generalized soft tissue sw elling especially anteriorly and medially. Underlying total knee arthroplasties. Fracture extension t o the femoral component is not as well appreciated on the present exam. External fixator noted. IMPRESSION: 1. Placement of external fixator with redemonstrated mildly comminuted fracture distal femoral metadi aphysis. 2. There is persistent but improved degree of anterior apex angulation. Some lateral angulation is no w present. 3. The prosthetic distention noted previously is not as well-seen on the present exam. [facility], , 04/12/2025 12:33 PM
[2025-04-12] MEDS ORDERED: NALOXONE 0.4 MG/ML 1 ML VIAL IV PRN (13:04)
--- NOTE | 2025-04-12 13:11 | CT ---
EXAMINATION TYPE: CT knee RT wo con CT DLP: 271.2 mGycm, Automated exposure control for dose reduction was used. DATE OF EXAM: 04/12/2025 1:00 PM COMPARISON: Right knee radiograph 04/12/2025 CLINICAL INDICATION:Female, 89 years old with history of distal femur fracture; PHH, distal femur fra cture TECHNIQUE: Axial images were obtained of the right knee without the use of IV contrast. Additional c oronal and sagittal reformatted images and soft tissue and bone window were obtained for review. 3-D reconstruction was created on a separate workstation. FINDINGS: Postsurgical changes from right knee arthroplasty. Hardware is intact with appropriate alig nment. This creates streak artifact which limits evaluation. No periprosthetic lucency identified. No dislocation. Acute mildly comminuted mildly displaced oblique distal radial metadiaphysis fracture with mild anter ior lateral apex angulation. Approximately 8 mm of shortening. Fracture line extends to the posterior aspect of the lateral femoral condyle There is surrounding soft tissue edema and fluid. Mild suprase llar joint effusion. Mild vascular sclerosis. IMPRESSION: 1. Redemonstration of acute mildly comminuted mildly displaced distal radial metadiaphysis fracture. There is extension to the lateral femoral condyle posteriorly. 2. Surgical changes from right knee arthroplasty. Hardware appears intact with proper alignment. [facility], , 04/12/2025 1:08 PM
--- NOTE | 2025-04-12 13:30 | XR ---
EXAMINATION TYPE: XR Hip Complete RT DATE OF EXAM: 04/12/2025 12:52 PM COMPARISON: None CLINICAL INDICATION: Female, 89 years old with history of femur fracture; PHH, pain TECHNIQUE: 2 views FINDINGS: There is osteopenia which limits examination. There is mild degenerative change at the righ t hip with marginal spurring both relative preservation of hip joint space. No displaced fracture is seen. IMPRESSION: Osteopenia limiting assessment. No displaced fracture is seen. If the patient is nonweightbearing or if there is high clinical concern for an occult osseous injury, MRI can provide more sensitive evalua tion. [facility], Workstation: [id number], 04/12/2025 1:27 PM
--- NOTE | 2025-04-12 15:21 | XR ---
EXAMINATION TYPE: XR chest 1V DATE OF EXAM: 04/12/2025 COMPARISON: 11/22/2022 CLINICAL INDICATION: Female, 89 years old with history of Pre-op; spine surgery TECHNIQUE: Single frontal view of the chest is obtained. FINDINGS: Heart is moderately enlarged. Hyperinflation. Interstitial densities are unchanged. No consolidation or pleural effusion. IMPRESSION: Moderate cardiomegaly, COPD, and chronic appearing changes. No definite acute process. [facility], Workstation: [email or web address], 04/12/2025 3:19 PM
[2025-04-12 15:26] LABS: Basophils # (A) 0.06 10*3/uL (0.00-0.10); Basophils % (A) 0.7 %; Eosinophils # (A) 0.01 10*3/uL (0.04-0.35); Eosinophils % (A) 0.1 %; HCT 31.7 % (37.2-46.3); HGB 10.5 g/dL (12.0-15.0); Lymphocytes # (A) 0.29 10*3/uL (0.90-5.00); Lymphocytes % (A) 3.2 %; MCH 32.8 pg (27.0-32.0); MCHC 33.1 g/dL (32.0-37.0); MCV 99.1 fL (80.0-97.0); Monocytes # (A) 0.67 10*3/uL (0.20-1.00); Monocytes % (A) 7.5 %; Neutrophils # (A) 7.87 10*3/uL (1.80-7.70); Neutrophils % (A) 88.2 %; Platelet Count 185 10*3/uL (140-440); RBC 3.20 10*6/uL (4.10-5.20); RDW 14.1 % (11.5-14.5); WBC 8.93 10*3/uL (4.50-10.00)
[2025-04-12 15:48] LABS: ALT 16 U/L (4-34); AST 28 U/L (14-36); African American GFR (CKD) >90 (>60 ml/min/1.73 sqM); Albumin 3.4 g/dL (3.5-5.0); Albumin/Globulin Ratio 1.3; Alkaline Phosphatase 86 U/L (38-126); Anion Gap 5 mmol/L; Blood Urea Nitrogen 15 mg/dL (7-17); Calcium 8.4 mg/dL (8.4-10.2); Carbon Dioxide 27 mmol/L (22-30); Chloride 106 mmol/L (98-107); Globulin 2.6 g/dL; Glucose 135 mg/dL (74-99); Non-African American GFR(CKD) 88 (>60 ml/min/1.73 sqM); Potassium 4.2 mmol/L (3.5-5.1); Sodium 138 mmol/L (137-145); Total Protein 6.0 g/dL (6.3-8.2)
[2025-04-12] MEDS: HYDROmorphone 1 MG/ML 1 ML SYRINGE IVP PRN (20:58)
[2025-04-12] MEDS: FLECAINIDE 50 MG TAB PO SCH (21:01)
[2025-04-12] MEDS: METOPROLOL TARTRATE 25 MG TAB PO SCH (21:02)
[2025-04-13 05:56] LABS: INR 1.0 (<1.2); Partial Thromboplastin Time 24.9 sec (22.0-30.0); Prothrombin Time 11.5 sec (10.0-12.5)
[2025-04-13] MEDS: LEVOTHYROXINE 75 MCG TAB PO SCH (06:24)
--- NOTE | 2025-04-13 07:48 | P.HPOR ---
History of Present Illness H&P Date: 04/13/25 The patient is a very pleasant 89-year-old female with a medical history significant for atrial fibrillation on Eliquis and a prior right total knee replacement who was admitted to the emergency department yesterday. According to the patient and her family she was reaching for soap in the shower when she twisted her right knee and had immediate pain and deformity in the thigh. She was unable to ambulate. She was brought to the emergency department where x- rays showed a displaced supracondylar distal femur fracture and a well-fixed total knee replacement. At the time of my evaluation yesterday she is complaining of isolated pain in her right thigh. She is unable to bear weight. She denies any antecedent thigh or knee pain. She has no other complaints. Past Medical History Past Medical History: Atrial Fibrillation, Cancer, Chest Pain / Angina, Hypertension, Osteoarthritis (OA), Skin Disorder, Thyroid Disorder Additional Past Medical History / Comment(s): Afib with rvr in past, mitral valve leak, bilateral breast cancer with bilateral mastectomies/radiation, arthritis in R great toe and R thumb, hypothyroid, pt has poison sumac rash bilateral legs. History of Any Multi-Drug Resistant Organisms: None Reported Past Surgical History: Breast Surgery, Joint Replacement Additional Past Surgical History / Comment(s): AMINA, bilateral mastectomies, bilateral leg vein stripping, total R knee arthroplasty, one salpingoophorectomy pt thinks d/t cysts-cannot recall laterallity, bilateral cataract removal/lens implants, colonoscopy. Past Anesthesia/Blood Transfusion Reactions: No Reported Reaction Smoking Status: Never smoker - Past Family History Mother Family Medical History: Neurologic Disorder Additional Family Medical History / Comment(s): Mother of ALS at the age of 51 yrs. Father Additional Family Medical History / Comment(s): Father had an enlarged heart. He lived to be 86 or 87yrs old. Medications and Allergies Home Medications Medication Instructions Recorded Confirmed Type lisinopriL [Zestril] 10 mg PO HS 02/08/17 04/12/25 History Metoprolol Tartrate 25 mg PO BID 03/10/20 04/12/25 History Apixaban [Eliquis] 2.5 mg PO BID@0700,2100 04/12/25 04/12/25 History Flecainide [Tambocor] 50 mg PO BID@0700,2100 04/12/25 04/12/25 History Levothyroxine Sodium [Synthroid] 112 mcg PO DAILY@0700 04/12/25 04/12/25 History QUEtiapine [SEROquel] 12.5 mg PO HS 04/12/25 04/12/25 History Allergies Allergy/AdvReac Type Severity Reaction Status Date / Time No Known Allergies Allergy Verified 04/12/25 13:19 Physical Examination The patient is resting comfortably on an ER gurney. She is alert and able to answer questions. Her head is normocephalic and atraumatic. She demonstrates nonlabored breathing with symmetric chest expansion. Her abdomen is soft and nonobese. She has palpable peripheral pulses. Her bilateral upper extremities and left lower extremity are without deformity. A focused exam of the right lower extremity was conducted. On inspection there is a knee immobilizer which was gently taken down. There is a well-healed anterior incision from prior total knee arthroplasty. There is moderate swelling but no open wounds throughout the thigh. Her thigh and calf are soft. She is able to actively plantarflex and dorsiflex her ankle and her toes. There is a palpable dorsalis pedis pulse. Results X-rays and CT scan of the right femur show a displaced supracondylar distal femur fracture. There is a fracture line that extends medially to the implant but the implant otherwise appears to be well-fixed. Both the femoral and tibial implants are cemented. There is diffuse osteopenia. - Labs Labs: Abnormal Lab Results - Last 24 Hours (Table) 04/12/25 04/12/25 Range/Units 15:17 15:17 RBC 3.20 L (4.10-5.20) 10*6/uL Hgb 10.5 L (12.0-15.0) g/dL Hct 31.7 L (37.2-46.3) % MCV 99.1 H (80.0-97.0) fL MCH 32.8 H (27.0-32.0) pg MPV 8.8 L (9.5-12.2) fL Neutrophils # 7.87 H (1.80-7.70) 10*3/uL Lymphocytes # 0.29 L (0.90-5.00) 10*3/uL Eosinophils # 0.01 L (0.04-0.35) 10*3/uL Creatinine 0.49 L (0.52-1.04) mg/dL Glucose 135 H (74-99) mg/dL Total Bilirubin 1.6 H (0.2-1.3) mg/dL Total Protein 6.0 L (6.3-8.2) g/dL Albumin 3.4 L (3.5-5.0) g/dL H & H 04/12/25 Range/Units 15:17 Hgb 10.5 L (12.0-15.0) g/dL Hct 31.7 L (37.2-46.3) % Coagulation 04/13/25 Range/Units 04:46 INR 1.0 (<1.2) Result Diagrams: 04/12/25 15:17 04/12/25 15:17 Assessment and Plan Assessment: Displaced periprosthetic right distal femur fracture Atrial fibrillation on Eliquis Severe osteoporosis Plan: I met with the patient, her , and son yesterday in the emergency department. I printed out copies of their x-rays. We reviewed these images and discussed treatment options. The patient's total knee replacement appears to be well-fixed with decent amount of bone attached to the implant. My recommendation would be to proceed with open reduction and internal fixation with a lateral femoral locking plate. We discussed that the patient has severe osteoporosis. We discussed the procedure and potential risks and complications at length. The patient and her family understand that she is at an elevated risk of having a complication due to her age, medical comorbidities, and poor bone quality. We will plan on surgery later today if she is medically cleared. In the interim she is to remain on bedrest with strict nonweightbearing of the right lower extremity. Internal medicine has been consulted for preoperative clearance and perioperative medical management. Time with Patient: Greater than 30
[2025-04-13] MEDS: HYDROcodone/APAP 5-325MG 1 EACH TAB PO PRN (13:10)
--- NOTE | 2025-04-13 14:11 | P.CONS ---
History of Present Illness - Reason for Consult Consult date: 04/13/25 Medical management/clearance, right distal femur fracture - History of Present Illness This is a pleasant 89-year-old female who presented to the emergency department via EMS after a fall on the right. Patient reports she apparently fell backwards and in a twisting motion onto her right thigh and was unable to ambulate. Patient is admitted under orthopedics and is tentatively scheduled for surgical intervention on the right hip today. Patient is currently n.p.o. and scheduled for around 3 PM. Patient follows with Dr. Hawkins in the outpatient setting with a past medical history of atrial fibrillation, maintain ed on Eliquis, previous bilateral breast cancer with bilateral mastectomies and radiation, significant arthritis, hypothyroidism, hypertension, drinks a glass of wine daily, denies any other illicit drug use and is not a smoker. Labs reviewed reveal a white count of 8.93, hemoglobin 10.5, platelets 185, INR 1.0, sodium 138, potassium 4.2, BUN 15, creatinine 0.49, random glucose 135, nonfasting, total bili 1.6, protein low at 6.0 and albumin 3.4, liver functions within normal limits. Patient is currently rate controlled and would recommend continued telemetry monitoring. Imaging reveals a mildly comminuted fracture at the distal femoral metadiaphysis with salome anterior apex angulation. Patient does have history of right knee arthroplasty per 10 years ago which is demonstrated on CT and hardware is intact with proper alignment. CT revealed redemonstration of acute mildly comminuted mildly displaced distal radial fracture and extension to the lateral femoral condyle posteriorly. Chest x-ray shows moderate cardiomegaly with COPD and no definite acute process noted. Patient was admitted to orthopedics for surgical intervention with consult to medical for clearance. Risks versus benefits were explained to the patient as well as son and at the bedside and given her history and age there poses moderate risks although patient was ambulatory and independent prior to this, would recommend proceeding with the surgery to promote quality of life. Patient and family are agreeable with surgical intervention. Would also recommend closely monitoring the patient with concerns of hospital-acquired delirium and also narcotic use delirium. REVIEW OF SYSTEMS: CONSTITUTIONAL: No fever, no malaise, no fatigue. HEENT: No recent visual problems or hearing problems. Denied any sore throat. CARDIOVASCULAR: No chest pain, orthopnea, PND, no palpitations, no syncope. PULMONARY: No shortness of breath, no cough, no hemoptysis. GASTROINTESTINAL: No diarrhea, no nausea, no vomiting, no abdominal pain. NEUROLOGICAL: No headaches, no weakness, no numbness. HEMATOLOGICAL: Denies any bleeding or petechiae. GENITOURINARY: Denies any burning micturition, frequency, or urgency. MUSCULOSKELETAL/RHEUMATOLOGICAL: Reports severe right upper leg and knee pain but manageable when not moving ENDOCRINE: Denies any polyuria or polydipsia. The rest of the 14-point review of systems is negative. PHYSICAL EXAMINATION: GENERAL: The patient is alert and oriented x3, not in any acute distress. Well developed, well nourished. HEENT: Pupils are round and equally reacting to light. EOMI. No scleral icterus. No conjunctival pallor. Normocephalic, atraumatic. No pharyngeal erythema. No thyromegaly. CARDIOVASCULAR: S1 and S2 present. No murmurs, rubs, or gallops. PULMONARY: Chest is clear to auscultation, no wheezing or crackles. ABDOMEN: Soft, nontender, nondistended, normoactive bowel sounds. No palpable organomegaly. MUSCULOSKELETAL: No joint swelling or deformity. EXTREMITIES: No cyanosis, clubbing, or pedal edema. NEUROLOGICAL: Gross neurological examination did not reveal any focal deficits. SKIN: No rashes. Assessment: Mechanical fall with right lower extremity pain, mildly comminuted fracture at the distal femoral metadiaphysis with salome anterior apex angulation History of atrial fibrillation, maintained on Eliquis, currently rate controlled Hypertension History of bilateral breast cancer with bilateral mastectomies Osteoarthritis history Hypothyroidism Drinks a glass of wine daily GI prophylaxis DVT prophylaxis Full code Plan: Patient admitted under orthopedics scheduled for surgical intervention on the right distal radial today. Given patient's age and comorbidities patient is considered moderate risk for surgical intervention and risk versus benefits including were discussed with son and at the bedside and they are agreeable with surgical intervention as patient was independent prior to this Would recommend telemetry monitoring as patient has history of atrial fibrillation, currently rate controlled, recommend EKG Previous medical record including echo that was performed last year revealed normal left ventricular systolic function with no obvious regional wall motion abnormality, EF 55 to 60% with mild right ventricular dilatation, severe pulmonary hypertension and severe left atrial dilatation with mild to moderate and severe tricuspid/mitral regurgitation. Patient follows with Dr. Weeks outpatient Labs reviewed and within normal limits Continue with pain management per orthopedics although recommend cautiously using IV pain medications and narcotics given patient's age with extreme concern for hospital-acquired delirium or hallucinations from pain medications Blood pressure medications being held currently as patient is normotensive We will continue to follow with orthopedics during hospitalization. Thank you kindly for this consultation The impression and plan of care has been dictated by Karina Art, Nurse Practitioner as directed. Dr. Ilya MD I have performed a history and examination and MDM of this patient, discussed the same with the dictator, and agree with the dictator's assessment and plan as written ,documented as a scribe. Based on total visit time, I have performed more than 50% of the visit. Past Medical History Past Medical History: Atrial Fibrillation, Cancer, Chest Pain / Angina, Hypertension, Osteoarthritis (OA), Skin Disorder, Thyroid Disorder Additional Past Medical History / Comment(s): Afib with rvr in past, mitral valve leak, bilateral breast cancer with bilateral mastectomies/radiation, arthritis in R great toe and R thumb, hypothyroid, pt has poison sumac rash bilateral legs. History of Any Multi-Drug Resistant Organisms: None Reported Past Surgical History: Breast Surgery, Joint Replacement Additional Past Surgical History / Comment(s): AMINA, bilateral mastectomies, bilateral leg vein stripping, total R knee arthroplasty, one salpingoophorectomy pt thinks d/t cysts-cannot recall laterallity, bilateral cataract removal/lens implants, colonoscopy. Past Anesthesia/Blood Transfusion Reactions: No Reported Reaction Smoking Status: Never smoker - Past Family History Mother Family Medical History: Neurologic Disorder Additional Family Medical History / Comment(s): Mother of ALS at the age of 51 yrs. Father Additional Family Medical History / Comment(s): Father had an enlarged heart. He lived to be 86 or 87yrs old. Medications and Allergies Home Medications Medication Instructions Recorded Confirmed Type lisinopriL [Zestril] 10 mg PO HS 02/08/17 04/12/25 History Metoprolol Tartrate 25 mg PO BID 03/10/20 04/12/25 History Apixaban [Eliquis] 2.5 mg PO BID@0700,209904/12/25 04/12/25 History Flecainide [Tambocor] 50 mg PO BID@0700,2100 04/12/25 04/12/25 History Levothyroxine Sodium [Synthroid] 112 mcg PO DAILY@0700 04/12/25 04/12/25 History QUEtiapine [SEROquel] 12.5 mg PO HS 04/12/25 04/12/25 History Allergies Allergy/AdvReac Type Severity Reaction Status Date / Time No Known Allergies Allergy Verified 04/12/25 13:19 Physical Exam Vitals: Vital Signs Temp Pulse Pulse Resp BP BP Pulse Ox 04/13/25 07:52 97.4 F L 93 18 105/65 92 L 04/13/25 05:00 86 117/71 04/13/25 01:33 97.6 F 87 19 105/73 96 04/12/25 21:50 97.3 F L 111 H 18 147/78 97 04/12/25 21:10 97.0 F L 105 H 20 149/82 100 04/12/25 18:53 97.5 F L 75 16 110/74 100 04/12/25 16:00 97.8 F 16 129/74 98 04/12/25 12:55 97.8 F 103 H 16 100/59 96 Intake and Output 04/12/25 04/13/25 04/13/25 22:59 06:59 14:59 Output Total 600 Balance -600 Output: Urine 600 Uretheral (Garcia) 600 Other: Voiding Method Indwelling Catheter Indwelling Catheter Weight 55.338 kg Results CBC & Chem 7: 04/12/25 15:17 04/12/25 15:17 Labs: Abnormal Lab Results - Last 24 Hours (Table) 04/12/25 04/12/25 Range/Units 15:17 15:17 RBC 3.20 L (4.10-5.20) 10*6/uL Hgb 10.5 L (12.0-15.0) g/dL Hct 31.7 L (37.2-46.3) % MCV 99.1 H (80.0-97.0) fL MCH 32.8 H (27.0-32.0) pg MPV 8.8 L (9.5-12.2) fL Neutrophils # 7.87 H (1.80-7.70) 10*3/uL Lymphocytes # 0.29 L (0.90-5.00) 10*3/uL Eosinophils # 0.01 L (0.04-0.35) 10*3/uL Creatinine 0.49 L (0.52-1.04) mg/dL Glucose 135 H (74-99) mg/dL Total Bilirubin 1.6 H (0.2-1.3) mg/dL Total Protein 6.0 L (6.3-8.2) g/dL Albumin 3.4 L (3.5-5.0) g/dL
[2025-04-13] MEDS: IV FLUID CONTINUATION 1,000 ML IV ONE (15:09)
[2025-04-13] MEDS: ONDANSETRON 4 MG/2 ML VIAL IVP PRN (15:16)
[2025-04-13] MEDS ORDERED: HYDROmorphone (PF) 1 MG/ML ONE (16:00)
[2025-04-13] MEDS ORDERED: NEOSTIGMINE 1 MG/ML 10 ML VIAL ONE (16:00)
[2025-04-13] MEDS ORDERED: PHENYLEPHRINE-0.9% NACL SYG 1,000 MCG/10 ML SYRINGE ONE (16:00)
[2025-04-13] MEDS ORDERED: ROCURONIUM 10 MG/ML (5 ML VIAL) IV ONE (16:00)
[2025-04-13] MEDS ORDERED: GLYCOPYRROLATE 0.2 MG/ML 2 ML VIAL ONE (16:00)
[2025-04-13] MEDS ORDERED: TRANEXAMIC 1,000 MG/100ML-NACL PREMIX BAG ONE (16:00)
[2025-04-13] MEDS ORDERED: fentaNYL (PF) 50 MCG/ML 2 ML AMP ONE (16:00)
[2025-04-13] MEDS ORDERED: LIDOCAINE 1% INJ 10MG/ML (20 ML MDV) ONE (16:00)
[2025-04-13] MEDS ORDERED: PROPOFOL 10 MG/ML 20 ML VIAL IV ONE (16:00)
[2025-04-13] MEDS: SODIUM CHLORIDE 0.9% 100 ML with ceFAZolin 2,000 MG IV ONE (16:03)
[2025-04-13] MEDS: ROPIVACAINE/EPI/CLONIDINE/KET 50 ML SYRINGE MISCELLANE PRN (17:00)
[2025-04-13] MEDS: LACTATED RINGERS 1,000 ML IV ONE (18:24)
[2025-04-13] MEDS ORDERED: HYDROmorphone 0.5 MG/0.5 ML SYRINGE IVP PRN ×2 (18:28)
--- NOTE | 2025-04-13 18:28 | P.OP ---
Date of Procedure: 04/13/25 Preoperative Diagnosis: 1. Closed comminuted right periprosthetic supracondylar distal femur fracture 2. Atrial fibrillation on Eliquis 3. Severe osteoporosis Postoperative Diagnosis: Same Procedure(s) Performed: Open reduction internal fixation right distal femur periprosthetic fracture Implants: Дмитрий Pangea femoral locking plate Anesthesia: MOOSE [facility] Surgeon: Jose Francisco Barker Ski Lift Attendant #1: Trung Ramirez Ski Lift Attendant #2: Gladys Levine IV fluids (ml): 700 Urine output (ml): 400 Pathology: none sent Condition: stable Disposition: PACU Indications for Procedure: The patient is a very pleasant 89-year-old female with multiple medical problems including atrial fibrillation on Eliquis, prior right total knee replacement, and severe osteoporosis who was admitted under my care with a right comminuted periprosthetic distal femur fracture. She was seen by internal medicine and cleared for surgery. I met with the patient and her family preoperatively discussed treatment. Based on the location of her fracture and the imaging the femoral implant appeared stable and my recommendation was to perform an open reduction and internal fixation of her femoral shaft fracture. We discussed the procedure at length including the potential risks and complications. Risks discussed include but are certainly not limited to risks from anesthesia, superficial infection, deep infection, delayed wound healing, nonunion, malunion, malreduction, hardware failure, stiffness, and inability to regain preinjury level of function, symptomatic hardware, DVT, PE, acute coronary ev ent, stroke, failure to thrive, and possibly loss of life or limb. We specifically discussed the role that her very poor bone quality and advanced age play both with fracture healing and hardware failure. Both the patient and her family understand her elevated risk of complication. They provided both her verbal and written consent to go forward with surgery. Operative Findings: Severe osteoporosis with very poor bone quality in the femoral shaft and distal femur. Comminuted supracondylar periprosthetic distal femur fracture. Description of Procedure: The patient was identified in preoperative holding and the correct right leg was marked with my initials. I reviewed the consent form with the patient and her family. All their questions were answered. The patient was then brought back to the operating room. She was positioned on a radiolucent flattop table where a general anesthetic and preoperative antibiotics were given. A bump was placed onto the right buttock internally rotating the leg. A ramp was placed onto the right leg to facilitate imaging. The contralateral left leg was secured to the OR table with foam and tape. The right arm was carefully draped across the chest to facilitate positioning and imaging. Nonsterile drapes were applied. Fluoroscopy was brought in and a provisional reduction with longitudinal traction and a bump under the femur was performed. The fracture appeared relatively well reduced in both the AP and lateral planes. A presurgical scrub was performed with a chlorhexidine scrub brush and water. The right leg was then prepped and draped in the standard sterile fashion. Prior to starting surgery timeout was performed identifying the correct patient, operative extremity, and procedure. I began by outlining a straight lateral incision to the femur starting at the knee and extending just distal to the hip. Skin incision was made with a scalpel and dissection was carried down carefully through the subcutaneous tissue with electrocautery. The IT band was then incised longitudinally in line with the skin incision. I then elevated the vastus lateralis off the intermuscular septum down to the femoral shaft. Perforating vessels were controlled with bipolar electro sealant. The femoral shaft was fully exposed. The fracture was provisionally reduced with longitudinal traction and a bump of towels. I then placed a femoral locking plate over the lateral aspect of the femur starting just distal to the joint line and extending proximal to the lesser trochanter. The position of the plate was verified on both an AP and lateral image. The plate was held provisionally to the bone with K wires placed distal and proximal to the fracture. I then proceeded to place nonlocking screws both proximal and distal to the fracture bringing the plate nicely down to the lateral shaft of the femur. The position of the plate was verified with orthogonal fluoroscopic images. I then placed locking screws proximally and distally. I attempted to place as many locking screws in the distal segment as possible. Final fluoroscopic images were then taken showing excellent reduction of the fracture and adequate position of the hardware. The wound was then thoroughly irrigated with pulsatile lavage and closed in layers using all monofilament Quill suture. Local anesthetic was infiltrated in the muscles of the vastus lateralis and the subcutaneous tissue. A sterile dressing was applied. I verified that all instrument, sponge, and sharp counts were correct. After the drapes were taken down a Webril and Chilo wrap was applied followed by a knee immobilizer. The patient was then carefully transferred to a rcallands, extubated, and brought to recovery having tolerated the procedure well. Trung Ramriez PA-C was required as a skilled medical claims assistant due to the complexity of surgery for patient positioning, draping, exposure, retraction, reduction of fracture, closure of wound, and application of dressing. PLAN: The patient is going to be strictly nonweightbearing on the right lower extremity. She was placed in a knee immobilizer and we will order hinged knee brace. 2 doses postoperative antibiotics. Okay to resume Eliquis tomorrow for DVT prophylaxis. Physical therapy for mobilization and discharge recommendations. Discharge planning is in progress.
[2025-04-13] MEDS: diphenhydrAMINE 50 MG/ML 1 ML VIAL IVP STA (19:20)
[2025-04-13 20:43] LABS: Basophils # (A) 0.05 10*3/uL (0.00-0.10); Basophils % (A) 0.5 %; Eosinophils # (A) 0.06 10*3/uL (0.04-0.35); Eosinophils % (A) 0.6 %; HCT 29.5 % (37.2-46.3); HGB 9.5 g/dL (12.0-15.0); Lymphocytes # (A) 0.34 10*3/uL (0.90-5.00); Lymphocytes % (A) 3.4 %; MCH 32.9 pg (27.0-32.0); MCHC 32.2 g/dL (32.0-37.0); MCV 102.1 fL (80.0-97.0); Monocytes # (A) 0.85 10*3/uL (0.20-1.00); Monocytes % (A) 8.5 %; Neutrophils # (A) 8.61 10*3/uL (1.80-7.70); Neutrophils % (A) 86.5 %; Platelet Count 167 10*3/uL (140-440); RBC 2.89 10*6/uL (4.10-5.20); RDW 14.3 % (11.5-14.5); WBC 9.96 10*3/uL (4.50-10.00)
[2025-04-13] MEDS: TRANEXAMIC 1,000 MG/100ML-NACL 1,000 MG in SALINE 1 100ML.BAG IVPB SCH (22:21)
[2025-04-13] MEDS: QUEtiapine 25 MG TAB PO SCH (22:23)
[2025-04-13] MEDS: SENNOSIDES-DOCUSATE SODIUM 1 EACH TAB PO SCH (22:24)
[2025-04-13] MEDS: HYDROcodone/APAP 10-325MG 1 EACH TAB PO PRN (23:06)
[2025-04-13] MEDS: FLECAINIDE 50 MG TAB PO SCH (23:07)
--- NOTE | 2025-04-14 00:30 | FL ---
Fluoroscopy INDICATION: Pain FINDINGS: Fluoroscopy time: 1 minute 58.8 seconds. Total dose area product (DAP) in uGy*m?, mGy*cm? (or similar): 2.3917 Images obtained: 0. Images document the procedure. IMPRESSION: 1. Documentation of fluoroscopy. [facility], Workstation: [facility], 04/14/2025 12:28 AM
--- NOTE | 2025-04-14 00:48 | XR ---
Fluoroscopy INDICATION: Pain FINDINGS: Fluoroscopy time: 1 minute and 58.8 seconds. Total dose area product (DAP) in uGy*m?, mGy*cm? (or similar): 2.3917 Images obtained: 8. Images document open reduction internal fixation right femur IMPRESSION: 1. Documentation of fluoroscopy. [facility], Workstation: [facility], 04/14/2025 12:46 AM
[2025-04-14] MEDS: LEVOTHYROXINE 112 MCG TAB PO SCH (06:04)
--- NOTE | 2025-04-14 07:41 | P.PN ---
Subjective Patient was seen this morning at bedside. She is doing relatively well. Her pain is controlled. She denies chest pain or shortness of breath. Objective - Vital Signs Vital signs: Vital Signs Temp 97.8 F 04/14/25 01:07 Pulse 80 04/14/25 01:07 Resp 16 04/14/25 01:07 BP 98/61 04/14/25 01:07 Pulse Ox 92 L 04/14/25 01:07 FiO2 Intake & Output 04/13/25 04/14/25 04/14/25 18:59 06:59 18:59 Intake Total 1650 Output Total 600 600 Balance 1050 -600 Intake: IV 1650 Output: Urine 200 600 Estimated Blood Loss 400 Other: Voiding Method Indwelling Catheter Indwelling Catheter - Exam Sitting up in bed eating her breakfast. She is alert and able to answer questions. She is in no apparent distress. A focused exam of the right lower extremity was conducted. A knee immobilizer and Chilo wrap are intact over the leg. Her foot is warm and well-perfused with brisk capillary refill. She can actively plantarflex and dorsiflex her ankle and her toes. Sensation is intact throughout the right foot. - Labs CBC & Chem 7: 04/13/25 20:15 04/12/25 15:17 Labs: Abnormal Lab Results - Last 24 Hours (Table) 04/13/25 Range/Units 20:15 RBC 2.89 L (4.10-5.20) 10*6/uL Hgb 9.5 L (12.0-15.0) g/dL Hct 29.5 L (37.2-46.3) % MCV 102.1 H (80.0-97.0) fL MCH 32.9 H (27.0-32.0) pg MPV 9.0 L (9.5-12.2) fL Immature Gran # 0.05 H (0.00-0.04) 10*3/uL Neutrophils # 8.61 H (1.80-7.70) 10*3/uL Lymphocytes # 0.34 L (0.90-5.00) 10*3/uL Assessment and Plan Assessment: Postoperative day #1 status post open reduction internal fixation right periprosthetic distal femur fracture Osteoporosis Atrial fibrillation on Eliquis Plan: 1. Nonweightbearing right lower extremity. 2. Continue use of knee immobilizer. Will order a hinged knee brace 3. 2 doses postoperative antibiotics 4. Resume Eliquis 2.5 mg twice daily this morning both for treatment of atrial fibrillation and DVT prophylaxis 5. Appreciate internal medicine's assistance with perioperative medical management 6. Will check 25-hydroxy vitamin D level given patient's osteoporosis. Will also start calcium and vitamin D supplementation this morning 7. Physical therapy for mobilization and discharge recommendation 8. Discharge planning is in progress. Patient will likely need discharge to SNF versus rehab
[2025-04-14] MEDS: CHOLECALCIFEROL 25 MCG (1000 IU) TABLET PO SCH (07:54)
[2025-04-14] MEDS: APIXABAN 2.5 MG TABLET PO SCH (07:54)
[2025-04-14 08:14] LABS: ALT 14 U/L (8-44); AST 25 U/L (13-35); Albumin 3.3 g/dL (3.8-4.9); Albumin/Globulin Ratio 1.43 Ratio (1.60-3.17); Alkaline Phosphatase 66 U/L (41-126); Anion Gap 7.60 mmol/L (4.00-12.00); BUN/Creat Ratio 22.90 Ratio (12.00-20.00); Blood Urea Nitrogen 22.9 mg/dL (9.0-27.0); Calcium 8.4 mg/dL (8.7-10.3); Carbon Dioxide 25.4 mmol/L (21.6-31.8); Chloride 100 mmol/L (96-109); Globulin 2.3 g/dL (1.6-3.3); Glucose 139 mg/dL (70-110); Potassium 4.5 mmol/L (3.5-5.5); Sodium 133 mmol/L (135-145); Total Protein 5.6 g/dL (6.2-8.2)
[2025-04-14] MEDS: MULTIVITAMINS, THERA 1 EACH TAB PO SCH (12:37)
--- NOTE | 2025-04-15 05:36 | P.PN ---
Subjective Progress Note Date: 04/14/25 - Reason for Consult Consult date: 04/13/25 Medical management/clearance, right distal femur fracture - History of Present Illness This is a pleasant 89-year-old female who presented to the emergency department via EMS after a fall on the right. Patient reports she apparently fell backwards and in a twisting motion onto her right thigh and was unable to ambulate. Patient is admitted under orthopedics and is tentatively scheduled f or surgical intervention on the right hip today. Patient is currently n.p.o. and scheduled for around 3 PM[address] Patient follows with Dr. Hawkins in the outpatient setting with a past medical history of atrial fibrillation, maintained on Eliquis, previous bilateral breast cancer with bilateral mastecto mies and radiation, significant arthritis, hypothyroidism, hypertension, drinks a glass of wine daily, denies any other illicit drug use and is not a smoker. Labs reviewed reveal a white count of 8.93, hemoglobin 10.5, platelets 185, INR 1.0, sodium 138, potassium 4.2, BUN 15, creatinine 0.49, random glucose 135, nonfasting, total bili 1.6, protein low at 6.0 and albumin 3.4, liver functions within normal limits. Patient is currently rate controlled and would recommend continued telemetry monitoring. Imaging reveals a mildly comminuted fracture at the distal femoral metadiaphysis with salome anterior apex angulation. Patient does have history of right knee arthroplasty per 10 years ago which is demonstrated on CT and hardware is intact with proper alignment. CT revealed redemonstration of acute mildly comminuted mildly displaced distal radial fracture and extension to the lateral femoral condyle posteriorly. Chest x-ray shows moderate cardiomegaly with COPD and no definite acute process noted. Patient was admitted to orthopedics for surgical intervention with consult to medical for clearance. Risks versus benefits were explained to the patient as well as son and at the bedside and given her history and age there poses moderate risks although patient was ambulatory and independent prior to this, would recommend proceeding with the surgery to promote quality of life. Patient and family are agreeable with surgical intervention. Would also recommend close ly monitoring the patient with concerns of hospital-acquired delirium and also narcotic use delirium. 04/14/2025 Patient is seen in follow-up this morning status post open reduction internal fixation of the right periprosthetic distal femur fracture with orthopedics yesterday. Patient is currently sitting up in the chair reports to doing well appears in mild distress, reports just received a pain pill and pain is improving. Recommend limiting IV narcotic use and monitoring mentation. Patient is alert and oriented on exam. Patient is tolerating clear liquids and recommend to advance as tolerated. Patient denies any nausea or vomiting at this time. Patient does have history of atrial fibrillation and Eliquis has been resumed. Recommend incentive spirometer use at least 10 times every hour while awake. Patient has been evaluated by physical therapy recommending rehab and family discussing with case management. According to Medicare guidelines, patient will require 3 night hospitalization for ECF Review of systems: Constitutional: No reports of fatigue, fever, or chills Cardiovascular: No reports of chest pain or palpitations Respiratory: No reports of shortness of breath or cough GI: No reports of nausea, vomiting, or diarrhea, reports not passing gas and no bowel movement as of yet : No reports of dysuria or retention Neurovascular: reports of generalized weakness and continued right lower extremity pain All medications have been reviewed The rest of the 14-point review of systems is negative. PHYSICAL EXAMINATION: GENERAL: The patient is alert and oriented x3, sitting up in the chair, not in any acute distress. Well developed, well nourished. Thin built, elderly appearing HEENT: Pupils are round and equally reacting to light. EOMI. No scleral icterus. No conjunctival pallor. Normocephalic, atraumatic. No pharyngeal erythema. No thyromegaly. CARDIOVASCULAR: S1 and S2 muffled, A-fib PULMONARY: Diminished breath sounds bilaterally otherwise chest is clear to auscultation, no wheezing or crackles. ABDOMEN: Soft, thin nontender, nondistended, normoactive bowel sounds. No palpable organomegaly. MUSCULOSKELETAL: No joint swelling or deformity. EXTREMITIES: No cyanosis, clubbing, or pedal edema. Right surgical dressing is dry and intact in immobilizer noted NEUROLOGICAL: Gross neurological examination did not reveal any focal deficits. Diffusely weak SKIN: No rashes. Assessment: Mechanical fall with right lower extremity pain, mildly comminuted fracture at the distal femoral metadiaphysis with salome anterior apex angulation, status post ORIF of the right periprosthetic distal femur fracture on 04/13/2025 History of atrial fibrillation, maintained on Eliquis, currently rate controlled, resumed Eliquis today Hypertension History of bilateral breast cancer with bilateral mastectomies Osteoarthritis history Hypothyroidism Drinks a glass of wine daily GI prophylaxis DVT prophylaxis Full code Plan: Patient admitted under orthopedics scheduled and is status post ORIF of the right periprosthetic distal femur fracture, postop day [address] and patient is to be nonweightbearing per orthopedics. Working with PT/OT therapy and will likely require ECF. Family is agreeable in reviewing [facility] [place]. Case management following and patient will require 3 night hospitalization according to Medicare guidelines Continue telemetry monitoring as patient has history of atrial fibrillation, currently rate controlled Labs reviewed and within normal limits Continue with pain management per orthopedics although recommend cautiously using IV pain medications and narcotics given patient's age with extreme concern for hospital-acquired delirium or hallucinations from pain medications. Patient does chronically take Seroquel low-dose at night at home and has been resumed Recommend incentive spirometer use at least 10 times every hour while awake Advance diet as tolerated Blood pressure medications being held currently as patient is normotensive We will continue to follow with orthopedics during hospitalization. Thank you kindly for this consultation The impression and plan of care has been dictated by Karina Art, Nurse Practitioner as directed. Dr. Ilya MD I have performed a history and examination and MDM of this patient, discussed the same with the dictator, and agree with the dictator's assessment and plan as written ,documented as a scribe. Based on total visit time, I have performed more than 50% of the visit. Objective - Vital Signs Vital signs: Vital Signs Temp 97.8 F 04/14/25 01:07 Pulse 80 04/14/25 01:07 Resp 16 04/14/25 01:07 BP 98/61 04/14/25 01:07 Pulse Ox 92 L 04/14/25 01:07 FiO2 Intake & Output 04/13/25 04/13/25 04/14/25 06:59 18:59 06:59 Intake Total 1650 Output Total 600 600 600 Balance -600 1050 -600 Weight 55.338 kg Intake: IV 1650 Output: Urine 600 200 600 Uretheral (Garcia) 600 Estimated Blood Loss 400 Other: Voiding Method Indwelling Catheter Indwelling Catheter Indwelling Catheter - Labs CBC & Chem 7: 04/13/25 20:15 04/14/25 03:05 Labs: Abnormal Lab Results - Last 24 Hours (Table) 04/13/25 Range/Units 20:15 RBC 2.89 L (4.10-5.20) 10*6/uL Hgb 9.5 L (12.0-15.0) g/dL Hct 29.5 L (37.2-46.3) % MCV 102.1 H (80.0-97.0) fL MCH 32.9 H (27.0-32.0) pg MPV 9.0 L (9.5-12.2) fL Immature Gran # 0.05 H (0.00-0.04) 10*3/uL Neutrophils # 8.61 H (1.80-7.70) 10*3/uL Lymphocytes # 0.34 L (0.90-5.00) 10*3/uL
[2025-04-15] MEDS: HYDROmorphone 0.5 MG/0.5 ML SYRINGE IVP PRN (11:01)
--- NOTE | 2025-04-15 11:32 | P.PN ---
Subjective Very painful this morning. According to nursing she has not gotten any pain medication. Objective - Vital Signs Vital signs: Vital Signs Temp 99.8 F H 04/15/25 07:23 Pulse 95 04/15/25 07:23 Resp 20 04/15/25 10:09 BP 129/72 04/15/25 07:23 Pulse Ox 95 04/15/25 07:23 FiO2 Intake & Output 04/14/25 04/15/25 04/15/25 18:59 06:59 18:59 Intake Total 200 Output Total 900 900 Balance -900 -700 Intake: Oral 200 Output: Urine 900 900 Other: Voiding Method Indwelling Catheter Indwelling Catheter Indwelling Catheter # Voids 1 1 - Exam Resting in bed. Very painful. Knee immobilizer and NINA wrap taken off. Dressing over lateral thigh intact with no drainage or strikethrough. Thigh soft, moderately swollen. Calf non-tender. Pain even with light touch of the tight. No pain with PROM of ankle/toes. Moves toes and ankle up and down. Foot is WWP with brisk CR. - Labs CBC & Chem 7: 04/13/25 20:15 04/14/25 03:05 Assessment and Plan Assessment: POD #2 s/p ORIF right periprosthetic femur fracture Plan: Continue treatment as outlined yesterday. NWB operative extremity. Ok to leave knee immobilizer off when in bed, place when up. Will order hinged knee brace. DVT prophylaxis with Eliquis. Leave surgical dressing in place. Will order [place] 5/325 scheduled for the next 24 hours to improve pain control. Discharge planning in progress.
[2025-04-15] MEDS: NALOXONE 0.4 MG/ML 1 ML VIAL IV PRN (12:34)
[2025-04-15] MEDS: KETOROLAC 15 MG/ML 1 ML VIAL IVP PRN (13:04)
[2025-04-15] MEDS: HYDROcodone/APAP 5-325MG 1 EACH TAB PO SCH (13:53)
[2025-04-15] MEDS: SODIUM CHLORIDE 0.9% 500 ML 250 ML IV ONE (14:17)
[2025-04-15] MEDS: ACETAMINOPHEN IV (For NPO) 1,000 MG in EMPTY BAG 1 BAG IVPB PRN (16:22)
[2025-04-15 19:26] LABS: Basophils # (A) 0.05 10*3/uL (0.00-0.10); Basophils % (A) 0.6 %; Eosinophils # (A) 0.08 10*3/uL (0.04-0.35); Eosinophils % (A) 1.0 %; HCT 26.1 % (37.2-46.3); HGB 8.6 g/dL (12.0-15.0); Lymphocytes # (A) 0.51 10*3/uL (0.90-5.00); Lymphocytes % (A) 6.5 %; MCH 32.6 pg (27.0-32.0); MCHC 33.0 g/dL (32.0-37.0); MCV 98.9 fL (80.0-97.0); Monocytes # (A) 0.85 10*3/uL (0.20-1.00); Monocytes % (A) 10.8 %; Neutrophils # (A) 6.30 10*3/uL (1.80-7.70); Neutrophils % (A) 80.5 %; Platelet Count 176 10*3/uL (140-440); RBC 2.64 10*6/uL (4.10-5.20); RDW 14.1 % (11.5-14.5); WBC 7.84 10*3/uL (4.50-10.00)
--- NOTE | 2025-04-15 22:45 | P.PN ---
Subjective Progress Note Date: 04/15/25 - Reason for Consult Consult date: 04/13/25 Medical management/clearance, right distal femur fracture - History of Present Illness This is a pleasant 89-year-old female who presented to the emergency department via EMS after a fall on the right. Patient reports she apparently fell backwards and in a twisting motion onto her right thigh and was unable to ambulate. Patient is admitted under orthopedics and is tentatively scheduled f or surgical intervention on the right hip today. Patient is currently n.p.o. and scheduled for around 3 PM. Patient follows with Dr. Hawkins in the outpatient setting with a past medical history of atrial fibrillation, maintained on Eliquis, previous bilateral breast cancer with bilateral mastecto mies and radiation, significant arthritis, hypothyroidism, hypertension, drinks a glass of wine daily, denies any other illicit drug use and is not a smoker. Labs reviewed reveal a white count of 8.93, hemoglobin 10.5, platelets 185, INR 1.0, sodium 138, potassium 4.2, BUN 15, creatinine 0.49, random glucose 135, nonfasting, total bili 1.6, protein low at 6.0 and albumin 3.4, liver functions within normal limits. Patient is currently rate controlled and would recommend continued telemetry monitoring. Imaging reveals a mildly comminuted fracture at the distal femoral metadiaphysis with salome anterior apex angulation. Patient does have history of right knee arthroplasty per 10 years ago which is demonstrated on CT and hardware is intact with proper alignment. CT revealed redemonstration of acute mildly comminuted mildly displaced distal radial fracture and extension to the lateral femoral condyle posteriorly. Chest x-ray shows moderate cardiomegaly with COPD and no definite acute process noted. Patient was admitted to orthopedics for surgical intervention with consult to medical for clearance. Risks versus benefits were explained to the patient as well as son and at the bedside and given her history and age there poses moderate risks although patient was ambulatory and independent prior to this, would recommend proceeding with the surgery to promote quality of life. Patient and family are agreeable with surgical intervention. Would also recommend close ly monitoring the patient with concerns of hospital-acquired delirium and also narcotic use delirium. 04/14/2025 Patient is seen in follow-up this morning status post open reduction internal fixation of the right periprosthetic distal femur fracture with orthopedics yesterday. Patient is currently sitting up in the chair reports to doing well appears in mild distress, reports just received a pain pill and pain is improving. Recommend limiting IV narcotic use and monitoring mentation. Patient is alert and oriented on exam. Patient is tolerating clear liquids and recommend to advance as tolerated. Patient denies any nausea or vomiting at this time. Patient does have history of atrial fibrillation and Eliquis has been resumed. Recommend incentive spirometer use at least 10 times every hour while awake. Patient has been evaluated by physical therapy recommending rehab and family discussing with case management. According to Medicare guidelines, patient will require 3 night hospitalization for ECF 04/15/2025 Patient is seen in follow-up today and was having extreme pain with working with physical therapy and uncontrolled pain management and nursing staff reported IV pain medications. Strongly recommend avoiding IV narcotics given age and high risk for delirium. Patient was noted to have low blood pressure and will give a small bolus and recommend repeat vital signs every 4 hours. Orthopedics as attending recommend monitoring overnight with possible discharge planning to ECF on discharge. Patient has been resumed back on Eliquis and tolerating and will continue. Blood pressures have been low and recommend holding lisinopril only was given speech therapist early intervention. Review of systems: Constitutional: No reports of fatigue, fever, or chills Cardiovascular: No reports of chest pain or palpitations Respiratory: No reports of shortness of breath or cough GI: No reports of nausea, vomiting, or diarrhea, reports passing gas and no bowel movement as of yet : No reports of dysuria or retention Neurovascular: reports of generalized weakness and continued right lower extrem ity pain All medications have been reviewed PHYSICAL EXAMINATION: GENERAL: The patient is alert and oriented x3, sitting up in the chair, not in any acute distress. Well developed, well nourished. Thin built, elderly appearing HEENT: Pupils are round and equally reacting to light. EOMI. No scleral icterus. No conjunctival pallor. Normocephalic, atraumatic. No pharyngeal erythema. No thyromegaly. CARDIOVASCULAR: S1 and S2 muffled, A-fib PULMONARY: Diminished breath sounds bilaterally otherwise chest is clear to auscultation, no wheezing or crackles. ABDOMEN: Soft, thin nontender, nondistended, normoactive bowel sounds. No palpable organomegaly. MUSCULOSKELETAL: No joint swelling or deformity. EXTREMITIES: No cyanosis, clubbing, or pedal edema. Right surgical dressing is dry and intact and immobilizer noted NEUROLOGICAL: Gross neurological examination did not reveal any focal deficits. Diffusely weak SKIN: No rashes. Assessment: Mechanical fall with right lower extremity pain, mildly comminuted fracture at the distal femoral metadiaphysis with salome anterior apex angulation, status post ORIF of the right periprosthetic distal femur fracture on 04/13/2025 History of atrial fibrillation, maintained on Eliquis, currently rate controlled, resumed Eliquis Hypertension, currently hypotensive, possibly secondary to IV narcotics History of bilateral breast cancer with bilateral mastectomies Osteoarthritis history Hypothyroidism Drinks a glass of wine daily GI prophylaxis DVT prophylaxis Full code Plan: Patient admitted under orthopedics and is status post ORIF of the right periprosthetic distal femur fracture, postop day [address] and patient is to be nonweightbearing per orthopedics. Working with PT/OT therapy and will likely require ECF. Family is agreeable in reviewing [facility] [place]. Case management following and patient will require 3 nig ht hospitalization according to Medicare guidelines Continue telemetry monitoring as patient has history of atrial fibrillation, currently rate controlled Labs reviewed and within normal limits Continue with pain management per orthopedics although recommend cautiously using IV pain medications and narcotics given patient's age with extreme concern for hospital-acquired delirium or hallucinations from pain medications. Patient does chronically take Seroquel low-dose at night at home and has been resumed Recommend incentive spirometer use at least 10 times every hour while awake Advance diet as tolerated Blood pressure medications being held and currently hypotensive, will give a 250 mL bolus normal saline and continue monitoring vital signs closely. We will continue to follow with orthopedics during hospitalization. Thank you kindly for this consultation The impression and plan of care has been dictated by Karina Art, Nurse Practitioner as directed. Dr. Uriel MD I have performed a history and examination and MDM of this patient, discussed the same with the dictator, and agree with the dictator's assessment and plan as written ,documented as a scribe. Based on total visit time, I have performed more than 50% of the visit. Objective - Vital Signs Vital signs: Vital Signs Temp 99.8 F H 04/15/25 07:23 Pulse 95 04/15/25 07:23 Resp 14 07/24/25 12:34 BP 129/72 04/15/25 07:23 Pulse Ox 95 04/15/25 07:23 FiO2 Intake & Output 04/14/25 04/15/25 04/15/25 18:59 06:59 18:59 Intake Total 500 Output Total 900 900 Balance -900 -400 Intake: Oral 500 Output: Urine 900 900 Other: Voiding Method Indwelling Catheter Indwelling Catheter Indwelling Catheter # Voids 1 1 - Labs CBC & Chem 7: 04/15/25 19:06 04/14/25 03:05
[2025-04-16 08:27] LABS: Anion Gap 9.00 mmol/L (4.00-12.00); BUN/Creat Ratio 29.12 Ratio (12.00-20.00); Blood Urea Nitrogen 23.3 mg/dL (9.0-27.0); Calcium 8.2 mg/dL (8.7-10.3); Carbon Dioxide 23.0 mmol/L (21.6-31.8); Chloride 102 mmol/L (96-109); Glucose 91 mg/dL (70-110); Magnesium 2.0 mg/dL (1.5-2.4); Potassium 3.9 mmol/L (3.5-5.5); Sodium 134 mmol/L (135-145)
--- NOTE | 2025-04-16 15:19 | CDI ---
Documentation Clarification Form Date: 04/16/2025 02:34:12 PM From: Margoth Valenzuela RN CDIS Phone: [phone] Admit Date: 04/12/2025 01:27:00 PM Patient Name: Nadya Suárez Visit Number: [id number] Discharge Date: ATTENTION: The Clinical Documentation Specialists (CDI) and [facility] Coding Staff appreciate your assistance in clarifying documentation. Please respond to the clarification below the line at the bottom and electronically sign. The CDI & [facility] Coding staff will review the response and follow-up if needed. Please note: Queries are made part of the Legal Health Record. If you have any questions, please contact the author of this message via ITS. Doctor: Jose Francisco Barker A fracture is documented 04/13 Surgical note. Additional clarification regarding the etiology of the fracture is requested. History/Risk Factors: 89 year old female presents to the ED after reaching for soap in the shower when she twisted her right knee and had immediate pain and deformity in the right thigh. She was unable to ambulate. The pain is isolated to her right thigh. Medical History: Atrial fib, Cancer, Angina, HTN and Osteoarthritis. 04/13, HP Clinical Indications: 04/12 Hip Xray: Osteopenia limiting assessment. No displaced fracture is seen. If the patient is non weight bearing or if there is high clinical concern for an occult osseous injury. 04/13 Post op Diagnosis: #1 Closed comminuted right periprosthetic supracondylar distal femur fracture. #2 Atrial fibrillation on Eliquis #3 Severe osteoporosis Treatment: Open reduction fixation right distal femur periprosthetic fracture. PT/OT, [place] 5/325 po prn, [place] 10/325 po prn, Toradol ivp prn, Please clarify the etiology of the fracture, if known: [ ] Traumatic [ ] Osteoporosis [ ] Other (please specify): [ ] Unable to determine (Template Last Revised: November 2020) MTDD
--- NOTE | 2025-04-17 05:40 | P.PN ---
Subjective Progress Note Date: 04/16/25 - Reason for Consult Consult date: 04/13/25 Medical management/clearance, right distal femur fracture - History of Present Illness This is a pleasant 89-year-old female who presented to the emergency department via EMS after a fall on the right. Patient reports she apparently fell backwards and in a twisting motion onto her right thigh and was unable to ambulate. Patient is admitted under orthopedics and is tentatively scheduled f or surgical intervention on the right hip today. Patient is currently n.p.o. and scheduled for around 3 PM. Patient follows with Dr. Hawkins in the outpatient setting with a past medical history of atrial fibrillation, maintained on Eliquis, previous bilateral breast cancer with bilateral mastecto mies and radiation, significant arthritis, hypothyroidism, hypertension, drinks a glass of wine daily, denies any other illicit drug use and is not a smoker. Labs reviewed reveal a white count of 8.93, hemoglobin 10.5, platelets 185, INR 1.0, sodium 138, potassium 4.2, BUN 15, creatinine 0.49, random glucose 135, nonfasting, total bili 1.6, protein low at 6.0 and albumin 3.4, liver functions within normal limits. Patient is currently rate controlled and would recommend continued telemetry monitoring. Imaging reveals a mildly comminuted fracture at the distal femoral metadiaphysis with salome anterior apex angulation. Patient does have history of right knee arthroplasty per 10 years ago which is demonstrated on CT and hardware is intact with proper alignment. CT revealed redemonstration of acute mildly comminuted mildly displaced distal radial fracture and extension to the lateral femoral condyle posteriorly. Chest x-ray shows moderate cardiomegaly with COPD and no definite acute process noted. Patient was admitted to orthopedics for surgical intervention with consult to medical for clearance. Risks versus benefits were explained to the patient as well as son and at the bedside and given her history and age there poses moderate risks although patient was ambulatory and independent prior to this, would recommend proceeding with the surgery to promote quality of life. Patient and family are agreeable with surgical intervention. Would also recommend close ly monitoring the patient with concerns of hospital-acquired delirium and also narcotic use delirium. 04/14/2025 Patient is seen in follow-up this morning status post open reduction internal fixation of the right periprosthetic distal femur fracture with orthopedics yesterday. Patient is currently sitting up in the chair reports to doing well appears in mild distress, reports just received a pain pill and pain is improving. Recommend limiting IV narcotic use and monitoring mentation. Patient is alert and oriented on exam. Patient is tolerating clear liquids and recommend to advance as tolerated. Patient denies any nausea or vomiting at this time. Patient does have history of atrial fibrillation and Eliquis has been resumed. Recommend incentive spirometer use at least 10 times every hour while awake. Patient has been evaluated by physical therapy recommending rehab and family discussing with case management. According to Medicare guidelines, patient will require 3 night hospitalization for ECF 04/15/2025 Patient is seen in follow-up today and was having extreme pain with working with physical therapy and uncontrolled pain management and nursing staff reported IV pain medications. Strongly recommend avoiding IV narcotics given age and high risk for delirium. Patient was noted to have low blood pressure and will give a small bolus and recommend repeat vital signs every 4 hours. Orthopedics as attending recommend monitoring overnight with possible discharge planning to ECF on discharge. Patient has been resumed back on Eliquis and tolerating and will continue. 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 04/16/2025 Patient is seen and evaluated in follow-up today currently laying flat in bed reporting her pain is tolerable in this position and is excruciating in any type of movement. Plan will be for rehab once pain is better controlled. Blood pressures are improved and being closely monitored at this time. Encouraged incentive spirometer use at least 10 times every hour while awake. Would recommend sitting up in the chair more frequently all day patient is having such intense pain in his difficulty with movement. [place] is being made as scheduled per orthopedics to improve and pain control. Patient is afebrile with no reported chest pain or shortness of breath. Patient tolerating diet with no r eported nausea or vomiting. Patient reports not much of an appetite due to ongoing pain. Encourage small frequent meals and supplements between meals. Review of systems: Constitutional: No reports of fatigue, fever, or chills Cardiovascular: No reports of chest pain or palpitations Respiratory: No reports of shortness of breath or cough GI: No reports of nausea, vomiting, or diarrhea, reports passing gas : No reports of dysuria or retention Neurovascular: reports of generalized weakness and continued right lower extremity severe pain All medications have been reviewed PHYSICAL EXAMINATION: GENERAL: The patient is alert and oriented x3, laying flat in the bed, not in any acute distress at this time although has been in severe pain. Well developed, well nourished. Thin built, elderly appearing HEENT: Pupils are round and equally reacting to light. EOMI. No scleral icterus. No conjunctival pallor. Normocephalic, atraumatic. No pharyngeal erythema. No thyromegaly. CARDIOVASCULAR: S1 and S2 muffled, A-fib PULMONARY: Diminished breath sounds bilaterally otherwise chest is clear to auscultation, no wheezing or crackles. ABDOMEN: Soft, thin nontender, nondistended, normoactive bowel sounds. No palpable organomegaly. MUSCULOSKELETAL: No joint swelling or deformity. EXTREMITIES: No cyanosis, clubbing, or pedal edema. Right surgical dressing is dry and intact and immobilizer noted NEUROLOGICAL: Gross neurological examination did not reveal any focal deficits. Diffusely weak SKIN: No rashes. Assessment: Mechanical fall with right lower extremity pain, mildly comminuted fracture at the distal femoral metadiaphysis with salome anterior apex angulation, status post ORIF of the right periprosthetic distal femur fracture on 04/13/2025 History of atrial fibrillation, maintained on Eliquis, currently rate controlled, resumed Eliquis Hypertension History of bilateral breast cancer with bilateral mastectomies Osteoarthritis history Hypothyroidism Drinks a glass of wine daily GI prophylaxis DVT prophylaxis Full code Plan: Patient admitted under orthopedics and is status post ORIF of the right periprosthetic distal femur fracture, patient continues to have severe pain 10/10 and medications being adjusted. Low-dose [place] being made scheduled to orthopedics for 24 hours Knee immobilizer in place and patient is to be nonweightbearing per orthopedics. Working with PT/OT therapy and will be [facility]. Family is agreeable in reviewing [facility]. Case management following and patient will require 3 night hospitalization according to Medicare guidelines Continue telemetry monitoring as patient has history of atrial fibrillation, currently rate controlled Labs reviewed and within normal limits Recommend incentive spirometer use at least 10 times every hour while awake Advance diet as tolerated, recommend supplements and small frequent meals Blood pressure medications being held and was hypotensive, continue to monitor blood pressure closely and will resume appropriate home medications We will continue to follow with orthopedics during hospitalization. Thank you kindly for this consultation The impression and plan of care has been dictated by Karina Art, Nurse Practitioner as directed. Dr. Uriel MD I have performed a history and examination and MDM of this patient, discussed the same with the dictator, and agree with the dictator's assessment and plan as written ,documented as a scribe. Based on total visit time, I have performed more than 50% of the visit. Objective - Vital Signs Vital signs: Vital Signs Temp 98.4 F 04/17/25 01:15 Pulse 106 H 04/17/25 01:15 Resp 16 04/17/25 01:15 BP 124/68 04/17/25 01:15 Pulse Ox 96 04/17/25 01:15 FiO2 Intake & Output 04/16/25 04/16/25 04/17/25 06:59 18:59 06:59 Output Total 1175 900 Balance -1175 -900 Output: Urine 1175 900 Other: Voiding Method Indwelling Catheter Indwelling Catheter Indwelling Catheter # Voids 1 - Labs CBC & Chem 7: 04/15/25 19:06 04/16/25 04:10 Labs: Abnormal Lab Results - Last 24 Hours (Table) 04/16/25 Range/Units 04:10 Sodium 134 L (135-145) mmol/L BUN/Creatinine Ratio 29.12 H (12.00-20.00) Ratio Calcium 8.2 L (8.7-10.3) mg/dL
--- NOTE | 2025-04-17 09:25 | P.PN ---
Progress Note - Text Cause of patient's right femur fracture is trauma (fall) and osteoporosis
--- NOTE | 2025-04-17 09:27 | P.PN ---
Subjective Patient's pain is better today. No other complaints. Objective - Vital Signs Vital signs: Vital Signs Temp 98.2 F 04/17/25 07:05 Pulse 108 H 04/17/25 07:05 Resp 18 04/17/25 07:05 BP 153/83 04/17/25 07:05 Pulse Ox 94 L 04/17/25 07:05 FiO2 Intake & Output 04/16/25 04/17/25 04/17/25 18:59 06:59 18:59 Output Total 900 925 Balance -900 -925 Output: Urine 900 925 Other: Voiding Method Indwelling Catheter Indwelling Catheter # Voids 1 - Exam Resting comfortably in bed. Dressing over right femur intact. Thigh soft. Moves feet/toes up and down. Foot is warm and well perfused. - Labs CBC & Chem 7: 04/15/25 19:06 04/16/25 04:10 Assessment and Plan Assessment: POD #4 s/p ORIF periprosthetic femur fracture Plan: Pain is better today. Continue treatment as outlined. NWB right ILYA. Ordered a HKB today. Wear brace when up, can take off when in bed. Eliquis for both DVT prophylaxis and a fib. Awaiting clearance for d/c to [facility].
[2025-04-17] MEDS: MAGNESIUM HYDROXIDE 2,400 MG/30 ML CUP PO PRN (10:09)
--- NOTE | 2025-04-18 02:16 | PN ---
PROGRESS NOTE DATE OF SERVICE: 04/17/2025 SUBJECTIVE: This 89-year-old woman was admitted after comminuted fracture of distal femoral, is still complaining of leg pain. The patient is also being closely monitored. No chest pain. No palpitations. Diffusely weak. PHYSICAL EXAMINATION: VITAL SIGNS: Pulse 69, blood pressure 118/70, and respirations 17. CHEST: Clear to auscultation. HEENT: Conjunctivae normal. NECK: No JVD. CARDIOVASCULAR: S1, S2. ABDOMEN: Soft. LABORATORY DATA: Sodium 134. Rest of the labs are noted. ASSESSMENT: 1. Status post open reduction and internal fixation of the right periprosthetic distal femoral fracture. 2. Atrial fibrillation. 3. Hypertension. 4. Multiple complex medical issues. RECOMMENDATION: Continue current management and treatment. Continue current medications. I would recommend to repeat labs. Adjust medications. Pain management. Closely follow with Cardiology and Cardiothoracic Surgery. Possible ECF rehab. Further recommendations to follow. MMMAURAL / YUNIN: [id number] /
[2025-04-18 09:42] LABS: Basophils # (A) 0.06 X 10*3/uL (0.00-0.10); Basophils % (A) 1.1 %; Eosinophils # (A) 0.35 X 10*3/uL (0.04-0.35); Eosinophils % (A) 6.2 %; HCT 24.3 % (37.2-46.3); HGB 7.5 g/dL (12.0-15.0); Immature Grans, Automated 0.50 %; Lymphocytes # (A) 0.84 X 10*3/uL (0.90-5.00); Lymphocytes % (A) 14.9 %; MCH 31.0 pg (27.0-32.0); MCHC 30.9 g/dL (32.0-37.0); MCV 100.4 FL (80.0-97.0); Monocytes # (A) 0.50 X 10*3/uL (0.20-1.00); Monocytes % (A) 8.9 %; NRBC Per 100 WBC 0 X 10*3/uL (0.00-0.01); Neutrophils # (A) 3.86 X 10*3/uL (1.80-7.70); Neutrophils % (A) 68.4 %; Platelet Count 257 X 10*3/uL (140-440); RBC 2.42 X 10*6/uL (4.10-5.20); RDW 14.2 % (11.5-14.5); WBC 5.64 X 10*3/uL (4.50-10.00)
--- NOTE | 2025-04-18 09:46 | P.PN ---
Progress Note - Text Patient seen and examined this morning. Right LE exam shows soft thigh/calf. Dressing intact with no drainage or strikethrough. Hinged knee brace delivered yesterday. Awaiting final d/c plans. Likely d/c to [facility] tomorrow.
[2025-04-18 10:00] LABS: Anion Gap 9.90 mmol/L (4.00-12.00); BUN/Creat Ratio 24.86 Ratio (12.00-20.00); Blood Urea Nitrogen 17.4 mg/dL (9.0-27.0); Calcium 8.5 mg/dL (8.7-10.3); Carbon Dioxide 24.1 mmol/L (21.6-31.8); Chloride 105 mmol/L (96-109); Glucose 113 mg/dL (70-110); Potassium 4.5 mmol/L (3.5-5.5); Sodium 139 mmol/L (135-145)
[2025-04-18] MEDS: FOLIC ACID 1 MG TAB PO SCH (11:24)
[2025-04-18] MEDS: THIAMINE 100 MG TAB PO SCH (11:24)
[2025-04-18] MEDS: FERROUS SULFATE 325 MG TAB PO SCH (17:12)
[2025-04-18] MEDS: METOPROLOL TARTRATE 12.5 MG TAB PO SCH (20:23)
[2025-04-19 02:13] VITALS: PULSE 87
--- NOTE | 2025-04-19 04:41 | PN ---
PROGRESS NOTE DATE OF SERVICE: 04/18/2025 SUBJECTIVE: This 89-year-old woman was admitted after surgery for the right periprosthetic fracture. She is much more alert today. No chest pain. No palpitation. PHYSICAL EXAMINATION: VITAL SIGNS: Pulse is 57, blood pressure 98/50, respirations 18. CHEST: Clear to auscultation. CARDIOVASCULAR: S1, S2. ABDOMEN: Soft. NERVOUS SYSTEM: Nonfocal. LABORATORY DATA: Hemoglobin 7.5. ASSESSMENT: 1. Status post open reduction and internal fixation of the right periprosthetic distal femoral fracture. 2. Atrial fibrillation. 3. Hypertension. 4. Anemia. 5. Multiple complex medical issues. RECOMMENDATIONS: Continue current management and symptomatic treatment. The patient has slightly hypotension. I would recommend to reduce the dose of Lopressor. Repeat CBC, iron studies, iron supplementation. Further recommendations to follow. MMODL / IJN: [id number] /
[2025-04-19 07:24] VITALS: BP 139/84; RESP 18; TEMP 98.7
[2025-04-19 07:59] LABS: Basophils # (A) 0.07 X 10*3/uL (0.00-0.10); Basophils % (A) 1.6 %; Eosinophils # (A) 0.33 X 10*3/uL (0.04-0.35); Eosinophils % (A) 7.5 %; HCT 25.5 % (37.2-46.3); HGB 7.9 g/dL (12.0-15.0); Immature Grans, Automated 0.70 %; Lymphocytes # (A) 0.83 X 10*3/uL (0.90-5.00); Lymphocytes % (A) 18.8 %; MCH 31.7 pg (27.0-32.0); MCHC 31.0 g/dL (32.0-37.0); MCV 102.4 FL (80.0-97.0); Monocytes # (A) 0.39 X 10*3/uL (0.20-1.00); Monocytes % (A) 8.8 %; NRBC Per 100 WBC 0 X 10*3/uL (0.00-0.01); Neutrophils # (A) 2.76 X 10*3/uL (1.80-7.70); Neutrophils % (A) 62.6 %; Platelet Count 260 X 10*3/uL (140-440); RBC 2.49 X 10*6/uL (4.10-5.20); RDW 14.4 % (11.5-14.5); WBC 4.41 X 10*3/uL (4.50-10.00)
[2025-04-19 08:02] LABS: BUN/Creat Ratio 29.67 Ratio (12.00-20.00); Blood Urea Nitrogen 17.8 mg/dL (9.0-27.0); Glucose 100 mg/dL (70-110)
[2025-04-19 08:03] LABS: Anion Gap 8.60 mmol/L (4.00-12.00); Calcium 8.4 mg/dL (8.7-10.3); Carbon Dioxide 24.4 mmol/L (21.6-31.8); Chloride 104 mmol/L (96-109); Potassium 4.8 mmol/L (3.5-5.5); Sodium 137 mmol/L (135-145)
[2025-04-19 10:48] LABS: Iron 44.0 UG/DL (50-170); Total Iron Binding Capacity 237.0 UG/DL (228-460)
--- NOTE | 2025-04-19 11:59 | P.DS ---
Providers Date of admission: 04/12/25 13:27 Attending physician: Jose Francisco Barker Consults: 04/12/25 13:04 Consult Physician Stat Consulting Provider: Kt Galeano Consult Reason/Comments: Distal femur fracture Do you want consulting provider notified?: Yes, Notify in am Primary care physician: [facility] Course: 04/13/2025 HPI: The patient is a very pleasant 89-year-old female with a medical history significant for atrial fibrillation on Eliquis and a prior right total knee replacement who was admitted to the emergency department 04/12/2025. According to the patient and her family she was reaching for soap in the shower when she twisted her right knee and had immediate pain and deformity in the thigh. She was unable to ambulate. She was brought to the emergency department where x-rays showed a displaced supracondylar distal femur fracture and a well- fixed total knee replacement. At the time of my evaluation yesterday she is complaining of isolated pain in her right thigh. She is unable to bear weight. She denies any antecedent thigh or knee pain. She has no other complaints. On 04/13/25 they had open reduction internal fixation of right periprosthetic distal femur fracture by Dr. Barker. They tolerated the procedure well. They were transferred to the orthopedic floor. A hinged knee brace locked in extension was ordered for the patient. They worked with PT and it was determined they would need transferred to SNF at time of discharge. Assessment: 04/13/25 status post open reduction internal fixation right periprosthetic distal femur fracture Osteoporosis Atrial fibrillation on Eliquis Patient Condition at Discharge: Fair Plan - Discharge Summary Discharge Rx Participant: No New Discharge Prescriptions: New HYDROcodone/APAP 5-325MG [[place] 5-325] 1 - 2 tab PO Q6HR PRN #24 tab PRN Reason: Pain Docusate [Colace] 100 mg PO BID #30 capsule No Action lisinopriL [Zestril] 10 mg PO HS Metoprolol Tartrate 25 mg PO BID Apixaban [Eliquis] 2.5 mg PO BID@0700,2100 QUEtiapine [SEROquel] 12.5 mg PO HS Levothyroxine Sodium [Synthroid] 112 mcg PO DAILY@0700 Flecainide [Tambocor] 50 mg PO BID@699,2099 Discharge Medication List lisinopriL [Zestril] 10 mg PO HS 02/08/17 [History] Metoprolol Tartrate 25 mg PO BID 03/10/20 [History] Apixaban [Eliquis] 2.5 mg PO BID@0700,209904/12/25 [History] Flecainide [Tambocor] 50 mg PO BID@699,209904/12/25 [History] Levothyroxine Sodium [Synthroid] 112 mcg PO DAILY@69904/12/25 [History] QUEtiapine [SEROquel] 12.5 mg PO HS 04/12/25 [History] Docusate [Colace] 100 mg PO BID #30 capsule 04/17/25 [Rx] HYDROcodone/APAP 5-325MG [[place] 5-325] 1 - 2 tab PO Q6HR PRN #24 tab 04/17/25 [Rx] Follow up Appointment(s)/Referral(s): Capo Hawkins DO [Primary Care Provider] - 1-2 days [facility], [NON-STAFF] - As Needed Jose Francisco Barker MD [Medical Doctor] - 2 Weeks Activity/Diet/Wound Care/Special Instructions: 1. NON-Weight bearing on your operative extremity. Use a walker or other assistive device to ambulate. Wear knee brace when up. You can take off your brace when resting in bed. 2. Leave surgical dressing in place. If your dressing becomes saturated with blood, there is drainage, or the dressing becomes loose please contact the office. 3. It is okay to shower with your surgical dressing, but do not submerge in water (no hot tubs, bath's, swimming etc.) 4. Make sure to take her blood clot prevention medication as prescribed (aspirin, Eliquis, Xarelto, and Plavix are commonly prescribed medications for blood clot prevention) 5. While taking [place] or Percocet for pain make sure you're taking a stool softener (Colace) and drink lots of water. 6. Keep all follow-up appointments as scheduled. You will usually be seen in 1-2 weeks following surgery. 7. Please contact the office with any questions or concerns [phone] Discharge Disposition: TRANSFER TO SNF/ECF
--- NOTE | 2025-04-21 06:50 | P.PN ---
Progress Note - Text cause of fracture trauma/fall and osteoporosis
--- NOTE | 2025-04-21 23:18 | P.PN ---
Subjective Progress Note Date: 04/19/25 - Reason for Consult Consult date: 04/13/25 Medical management/clearance, right distal femur fracture - History of Present Illness This is a pleasant 89-year-old female who presented to the emergency department via EMS after a fall on the right. Patient reports she apparently fell backwards and in a twisting motion onto her right thigh and was unable to ambulate. Patient is admitted under orthopedics and is tentatively scheduled f or surgical intervention on the right hip today. Patient is currently n.p.o. and scheduled for around 3 PM. Patient follows with Dr. Hawkins in the outpatient setting with a past medical history of atrial fibrillation, maintained on Eliquis, previous bilateral breast cancer with bilateral mastecto mies and radiation, significant arthritis, hypothyroidism, hypertension, drinks a glass of wine daily, denies any other illicit drug use and is not a smoker. Labs reviewed reveal a white count of 8.93, hemoglobin 10.5, platelets 185, INR 1.0, sodium 138, potassium 4.2, BUN 15, creatinine 0.49, random glucose 135, nonfasting, total bili 1.6, protein low at 6.0 and albumin 3.4, liver functions within normal limits. Patient is currently rate controlled and would recommend continued telemetry monitoring. Imaging reveals a mildly comminuted fracture at the distal femoral metadiaphysis with salome anterior apex angulation. Patient does have history of right knee arthroplasty per 10 years ago which is demonstrated on CT and hardware is intact with proper alignment. CT revealed redemonstration of acute mildly comminuted mildly displaced distal radial fracture and extension to the lateral femoral condyle posteriorly. Chest x-ray shows moderate cardiomegaly with COPD and no definite acute process noted. Patient was admitted to orthopedics for surgical intervention with consult to medical for clearance. Risks versus benefits were explained to the patient as well as son and at the bedside and given her history and age there poses moderate risks although patient was ambulatory and independent prior to this, would recommend proceeding with the surgery to promote quality of life. Patient and family are agreeable with surgical intervention. Would also recommend close ly monitoring the patient with concerns of hospital-acquired delirium and also narcotic use delirium. 04/14/2025 Patient is seen in follow-up this morning status post open reduction internal fixation of the right periprosthetic distal femur fracture with orthopedics yesterday. Patient is currently sitting up in the chair reports to doing well appears in mild distress, reports just received a pain pill and pain is improving. Recommend limiting IV narcotic use and monitoring mentation. Patient is alert and oriented on exam. Patient is tolerating clear liquids and recommend to advance as tolerated. Patient denies any nausea or vomiting at this time. Patient does have history of atrial fibrillation and Eliquis has been resumed. Recommend incentive spirometer use at least 10 times every hour while awake. Patient has been evaluated by physical therapy recommending rehab and family discussing with case management. According to Medicare guidelines, patient will require 3 night hospitalization for ECF 04/15/2025 Patient is seen in follow-up today and was having extreme pain with working with physical therapy and uncontrolled pain management and nursing staff reported IV pain medications. Strongly recommend avoiding IV narcotics given age and high risk for delirium. Patient was noted to have low blood pressure and will give a small bolus and recommend repeat vital signs every 4 hours. Orthopedics as attending recommend monitoring overnight with possible discharge planning to [facility] on discharge. Patient has been resumed back on Eliquis and tolerating and will continue. Blood pressures have been low and recommend holding lisinopril only was given critical care unit manager. 04/16/2025 Patient is seen and evaluated in follow-up today currently laying flat in bed reporting her pain is tolerable in this position and is excruciating in any type of movement. Plan will be for rehab once pain is better controlled. Blood pressures are improved and being closely monitored at this time. Encouraged incentive spirometer use at least 10 times every hour while awake. Would recommend sitting up in the chair more frequently all day patient is having such intense pain in his difficulty with movement. Glenn is being made as scheduled per orthopedics to improve and pain control. Patient is afebrile with no reported chest pain or shortness of breath. Patient tolerating diet with no r eported nausea or vomiting. Patient reports not much of an appetite due to ongoing pain. Encourage small frequent meals and supplements between meals. 04/19/2025 Patient is seen in follow-up today reports pain is better controlled and is being scheduled for discharge to [facility] per orthopedics today. Patient is medically stable and would recommend weaning narcotics and limiting narcotic use if patient becomes more confused and drowsy. Patient encouraged to continue with incentive spirometer use at least 10 times every hour while awake and home medications have been reviewed and resumed. Eliquis has been resumed as well. Patient instructed to follow-up with primary care provider on discharge. Review of systems: Constitutional: No reports of fatigue, fever, or chills Cardiovascular: No reports of chest pain or palpitations Respiratory: No reports of shortness of breath or cough GI: No reports of nausea, vomiting, or diarrhea, reports passing gas : No reports of dysuria or retention Neurovascular: reports of generalized weakness and continued right lower ext remity pain and currently managed on regimen All medications have been reviewed PHYSICAL EXAMINATION: GENERAL: The patient is alert and oriented x3, sitting up in the chair, not in any acute distress at this time. Well developed, well nourished. Thin built, elderly appearing HEENT: Pupils are round and equally reacting to light. EOMI. No scleral icterus. No conjunctival pallor. Normocephalic, atraumatic. No pharyngeal erythema. No thyromegaly. CARDIOVASCULAR: S1 and S2 muffled, A-fib PULMONARY: Diminished breath sounds bilaterally otherwise chest is clear to auscultation, no wheezing or crackles. ABDOMEN: Soft, thin nontender, nondistended, normoactive bowel sounds. No palpable organomegaly. MUSCULOSKELETAL: No joint swelling or deformity. EXTREMITIES: No cyanosis, clubbing, or pedal edema. Right surgical dressing is dry and intact and immobilizer noted NEUROLOGICAL: Gross neurological examination did not reveal any focal deficits. Diffusely weak SKIN: No rashes. Assessment: Mechanical fall with right lower extremity pain, mildly comminuted fracture at the distal femoral metadiaphysis with salome anterior apex angulation, status post ORIF of the right periprosthetic distal femur fracture on 04/13/2025 History of atrial fibrillation, maintained on Eliquis, currently rate controlled, resumed Eliquis Hypertension History of bilateral breast cancer with bilateral mastectomies Osteoarthritis history Hypothyroidism Drinks a glass of wine daily GI prophylaxis DVT prophylaxis Full code Plan: Patient admitted under orthopedics and is status post ORIF of the right pe riprosthetic distal femur fracture, patient continues to have severe pain 10/10 and medications being adjusted. Low-dose Glenn being made scheduled to orthopedics for 24 hours Knee immobilizer in place and patient is to be nonweightbearing per orthopedics. Working with PT/OT therapy and will be going to [facility]. Family is agreeable in reviewing [facility]. Case management following and patient will require 3 night hospitalization according to Medicare guidelines Continue telemetry monitoring as patient has history of atrial fibrillation, currently rate controlled Labs reviewed and within normal limits Recommend incentive spirometer use at least 10 times every hour while awake including taking 2 rehab for continued use Advance diet as tolerated, recommend supplements and small frequent meals Blood pressure medications being resumed, continue to monitor blood pressure closely and will resume appropriate home medications Patient is medically stable once cleared by orthopedics. Patient will be going to [facility] today. Due to multiple complex medical issues, overall prognosis is guarded. We will continue to follow with orthopedics during hospitalization. Thank you kindly for this consultation The impression and plan of care has been dictated by Karina Art, Nurse Practitioner as directed. Dr. Uriel MD I have performed a history and examination and MDM of this patient, discussed the same with the dictator, and agree with the dictator's assessment and plan as written ,documented as a scribe. Based on total visit time, I have performed more than 50% of the visit. Objective - Vital Signs Vital signs: Vital Signs Temp 98.7 F 04/19/25 07:24 Pulse 87 04/19/25 07:24 Resp 18 04/19/25 07:24 BP 139/84 04/19/25 07:24 Pulse Ox 97 04/19/25 07:24 FiO2 Intake & Output 04/18/25 04/19/25 04/19/25 18:59 06:59 18:59 Other: Voiding Method Toilet Bedside Commode Bedside Commode Bedside Commode # Voids 3 1 1 - Labs CBC & Chem 7: 04/19/25 02:52 04/19/25 02:52 Labs: Abnormal Lab Results - Last 24 Hours (Table) 04/18/25 04/19/25 04/19/25 Range/Units 03:02 02:52 02:52 WBC 4.41 L (4.50-10.00) X 10*3/uL RBC 2.49 L (4.10-5.20) X 10*6/uL Hgb 7.9 L (12.0-15.0) g/dL Hct 25.5 L (37.2-46.3) % MCV 102.4 H (80.0-97.0) FL MCHC 31.0 L (32.0-37.0) g/dL MPV 9.3 L (9.5-12.2) FL Lymphocytes # 0.83 L (0.90-5.00) X 10*3/uL BUN/Creatinine Ratio 29.67 H (12.00-20.00) Ratio Calcium 8.4 L (8.7-10.3) mg/dL Iron 44 L (50-170) UG/DL Transferrin 169.0 L (204.0-354.0) mg/dL
== END 2025-04-19 16:13 | DRG 481 ==
LOC: EC 09:58 → 4SSUR 13:27
PROVIDERS: ADMIT Orthopaedic Surgery; ATTEND Orthopaedic Surgery
PROC: 0QSB04Z Reposition Right Lower Femur with Internal Fixation Device, Open Approach (ICD-10-PCS; principal; 2025-04-13 16:30)
DX: S72.451A Displaced supracondylar fracture without intracondylar extension of lower end of right femur, initial encounter for closed fracture (principal); M80.051A Age-related osteoporosis with current pathological fracture, right femur, initial encounter for fracture; M97.11XA Periprosthetic fracture around internal prosthetic right knee joint, initial encounter; J44.9 Chronic obstructive pulmonary disease, unspecified; E03.9 Hypothyroidism, unspecified; I11.9 Hypertensive heart disease without heart failure; I48.91 Unspecified atrial fibrillation; D64.9 Anemia, unspecified; W18.2XXA Fall in (into) shower or empty bathtub, initial encounter; M19.90 Unspecified osteoarthritis, unspecified site; M19.071 Primary osteoarthritis, right ankle and foot; M18.11 Unilateral primary osteoarthritis of first carpometacarpal joint, right hand; M85.80 Other specified disorders of bone density and structure, unspecified site; I95.9 Hypotension, unspecified; Z79.899 Other long term (current) drug therapy; Z79.890 Hormone replacement therapy; Z79.01 Long term (current) use of anticoagulants; Z85.3 Personal history of malignant neoplasm of breast; Z92.3 Personal history of irradiation
CPT/HCPCS: 71045; 73502; 80048; 80053; 82306; 83540; 83550; 83735; 85025; 85610; 85730; 86850; 86900; 86901; 96374; 96376; 99285